=== PATIENT | female | born 1950 | race Two or more races ===

== ENCOUNTER 2018-04-22 15:30 | Inpatient (IN) | payer MEDICAID ==
[~2018-04-22] VITALS: Ht 165.1 cm; Wt 65.3 kg
[2018-04-22 15:58] VITALS: BP 140/71
[2018-04-22] MEDS ORDERED: Sodium Chloride 500ML 500 ML IV ONE (16:00)
[2018-04-22] MEDS ORDERED: Gastrograffin 30ml ORAL PRN (16:00)
[2018-04-22] MEDS ORDERED: Isovue-300 100ml vial INJ PRN (16:00)
[2018-04-22] MEDS ORDERED: Morphine Sulfate 4mg/ml Inj IVP ONE (16:00)
--- NOTE | 2018-04-22 16:02 | Emergency Room Report ---
History of Present Illness General Chief Complaint: Abdominal Pain Source: Patient Present Illness HPI Patient presents with 5 days of abdominal pain vomiting and diarrhea. Initially she vomited up coffee-ground material but the vomiting is gotten better. She was evaluated on Thursday at [facility] and had x-rays and labs done but was told that nothing was wrong. The pain is left lower quadrant intermittent and right now is a 5/10 and cramping. It doesn't radiate. She has been able to keep down liquids but still feels weak and dehydrated as anything she eats comes out and the diarrhea is very watery and copious. She feels weak when standing and somewhat dizzy. No recent travel, unusual foods or sick contacts. No chest pain, dyspnea, headache, joint pain, rashes, dysuria, anxiety. The patient is diabetic and hypertensive. Allergies: Coded Allergies: No Known Allergies (Unverified , 04/22/18) Patient History Past Medical History: see triage record Social History: Denies: smoking, alcohol use, drug use Social History Narrative with her daughter Last Menstrual Period: NA Reviewed Nursing Documentation: PMH: Agreed; PSxH: Agreed Nursing Documentation-PMH Past Medical History: No History, Except For Hx Hypertension: Yes Hx Asthma: Yes Hx Diabetes: Yes Review of Systems All Other Systems: negative except mentioned in HPI Physical Exam Vital Signs Date Time Temp Pulse Resp B/P (MAP) Pulse Ox O2 Delivery O2 Flow Rate FiO2 04/22/18 15:41 98.5 81 18 140/71 95 Room Air 98.4 Sp02 EP Interpretation: reviewed, normal General Appearance: well appearing, no apparent distress, GCS 15, other - weak Head: normocephalic Eyes: bilateral eye normal inspection, bilateral eye PERRL ENT: moist mucus membranes Neck: supple Respiratory: lungs clear, normal breath sounds Cardiovascular #1: regular rate, rhythm Cardiovascular #2: 2+ radial (R) Gastrointestinal: normal inspection, normal bowel sounds, no mass, non- distended, no rebound, guarding - LLQ, tenderness Musculoskeletal: back normal, gait/station normal, normal range of motion Neurologic: alert, oriented x3, grossly normal Psychiatric: mood/affect normal Skin: normal inspection, warm/dry Medical Decision Making Diagnostic Impression: Primary Impression: Colitis Additional Impressions: Diabetes Qualified Codes: E11.9 - Type 2 diabetes mellitus without complications Dehydration Abdominal pain Qualified Codes: R10.32 - Left lower quadrant pain ER Course Patient presents with abdominal pain vomiting and diarrhea. Differential includes gastroenteritis, colitis, diverticulitis, gastritis amongst others. By the history, she is dehydrated clinically. The history suggests that she was vomiting blood initially. There's been no history of melena. She has comorbidities. Evaluation will be with EKG, chest x-ray, CT of the abdomen with contrast and labs. The patient will receive IV hydration and Zofran and morphine and Pepcid. EKG no injury. CXR no infiltrates. Labs with normal WBC, elevated glucose, Patient states pain improved but still with diarrhea. CT with colitis. Consider send stool for culture and C difficile. Needs continued IV hydration and repeat evaluations. Sugar needs to be followed. Admit med Dr. Presley. Laboratory Tests Test 04/22/18 16:10 White Blood Count 6.0 K/UL (4.8-10.8) Red Blood Count 4.02 M/UL (4.20-5.40) L Hemoglobin 11.3 G/DL (12.0-16.0) L Hematocrit 34.3 % (37.0-47.0) L Mean Corpuscular Volume 85 FL (80-99) Mean Corpuscular Hemoglobin 28.1 PG (27.0-31.0) Mean Corpuscular Hemoglobin Concent 32.9 G/DL (32.0-36.0) Red Cell Distribution Width 13.2 % (11.6-14.8) Platelet Count 319 K/UL (150-450) Mean Platelet Volume 5.0 FL (6.5-10.1) L Neutrophils (%) (Auto) 47.8 % (45.0-75.0) Lymphocytes (%) (Auto) 38.5 % (20.0-45.0) Monocytes (%) (Auto) 10.2 % (1.0-10.0) H Eosinophils (%) (Auto) 1.8 % (0.0-3.0) Basophils (%) (Auto) 1.7 % (0.0-2.0) Prothrombin Time 10.0 SEC (9.30-11.50) Prothrombin Time INR 0.9 (0.9-1.1) PTT 25 SEC (23-33) Urine Color Pale yellow Urine Appearance Clear Urine pH 6 (4.5-8.0) Urine Specific [place] 1.010 (1.005-1.035) Urine Protein Negative (NEGATIVE) Urine Glucose (UA) Negative (NEGATIVE) Urine Ketones Negative (NEGATIVE) Urine Occult Blood 1+ (NEGATIVE) H Urine Nitrite Negative (NEGATIVE) Urine Bilirubin Negative (NEGATIVE) Urine Urobilinogen Normal MG/DL (0.0-1.0) Urine Leukocyte Esterase 2+ (NEGATIVE) H Urine RBC 2-4 /HPF (0 - 2) H Urine WBC 2-4 /HPF (0 - 2) Urine Squamous Epithelial Cells Few /LPF (NONE/OCC) Urine Bacteria Occasional /HPF (NONE) Sodium Level 139 MMOL/L (136-145) Potassium Level 3.7 MMOL/L (3.5-5.1) Chloride Level 108 MMOL/L (98-107) H Carbon Dioxide Level 24 MMOL/L (21-32) Anion Gap 7 mmol/L (5-15) Blood Urea Nitrogen 9 mg/dL (7-18) Creatinine 0.6 MG/DL (0.55-1.30) Estimate Glomerular Filtration Rate > 60 mL/min (>60) Glucose Level 121 MG/DL (74-106) H Calcium Level 10.4 MG/DL (8.5-10.1) H Total Bilirubin 0.4 MG/DL (0.2-1.0) Aspartate Amino Transferase (AST) 18 U/L (15-37) Alanine Aminotransferase (ALT) 22 U/L (12-78) Alkaline Phosphatase 122 U/L (46-116) H Troponin I 0.000 ng/mL (0.000-0.056) Total Protein 7.0 G/DL (6.4-8.2) Albumin 3.4 G/DL (3.4-5.0) Globulin 3.6 g/dL Albumin/Globulin Ratio 0.9 (1.0-2.7) L Lipase 118 U/L (73-393) EKG Diagnostic Results Rate: normal Rhythm: NSR ST Segments: no acute changes Rhythm Strip Diag. Results EP Interpretation: yes Rhythm: NSR, no PVC's, no ectopy Chest X-Ray Diagnostic Results Chest X-Ray Diagnostic Results : Chest X-Ray Ordered: Yes # of Views/Limited/Complete: 1 View Indication: Other Interpretation: no consolidation, no effusion, no pneumothorax Impression: No acute disease Electronically Signed by: Spenser Howard MD CT/MRI/US Diagnostic Results CT/MRI/US Diagnostic Results : Imaging Test Ordered: abd pelvis Impression colitis Last Vital Signs Date Time Temp Pulse Resp B/P (MAP) Pulse Ox O2 Delivery O2 Flow Rate FiO2 04/23/18 00:00 99.0 68 20 124/48 100 Room Air 99.0 Status: improved Disposition: ADMITTED INPATIENT Condition: Serious Spenser Howard M.D. Apr 22, 2018 16:02
[2018-04-22 16:20] LABS: BASOPHILS % (AUTO) 1.7 % (0.0-2.0); EOSINOPHILS % (AUTO) 1.8 % (0.0-3.0); HEMATOCRIT 34.3 % (37.0-47.0); HEMOGLOBIN 11.3 G/DL (12.0-16.0); LYMPHOCYTES % (AUTO) 38.5 % (20.0-45.0); MEAN CORPUSCULAR VOLUME 85 FL (80-99); MONOCYTES % (AUTO) 10.2 % (1.0-10.0); NEUTROPHILS % (AUTO) 47.8 % (45.0-75.0); PLATELET COUNT 319 K/UL (150-450); RED BLOOD COUNT 4.02 M/UL (4.20-5.40); RED CELL DISTRIBUTION WIDTH 13.2 % (11.6-14.8)
[2018-04-22 16:25] LABS: APPEARANCE,URINE CLEAR; BILIRUBIN, URINE NEGATIVE (NEGATIVE); COLOR,URINE PALE YELLOW; GLUCOSE, URINE (UA) NEGATIVE (NEGATIVE); KETONES,URINE NEGATIVE (NEGATIVE); LEUKOCYTE ESTERASE ,URINE 2+ (NEGATIVE); NITRITE,URINE NEGATIVE (NEGATIVE); PH,URINE 6 (4.5-8.0); PROTEIN,URINE NEGATIVE (NEGATIVE); UROBILINOGEN,URINE NORMAL MG/DL (0.0-1.0)
[2018-04-22 16:40] LABS: INR 0.9 (0.9-1.1)
[2018-04-22 16:41] LABS: ANION GAP 7 mmol/L (5-15); BLOOD UREA NITROGEN 9 mg/dL (7-18); CALCIUM 10.4 MG/DL (8.5-10.1); CARBON DIOXIDE 24 MMOL/L (21-32); CHLORIDE 108 MMOL/L (98-107); CREATININE 0.6 MG/DL (0.55-1.30); POTASSIUM 3.7 MMOL/L (3.5-5.1); SODIUM 139 MMOL/L (136-145)
[2018-04-22 16:45] LABS: ALANINE AMINOTRANSFERASE 22 U/L (12-78); ALBUMIN 3.4 G/DL (3.4-5.0); ALBUMIN/GLOBULIN RATIO 0.9 (1.0-2.7); ALKALINE PHOSPHATASE 122 U/L (46-116); ASPARTATE AMINO TRANSFERASE 18 U/L (15-37); BILIRUBIN,TOTAL 0.4 MG/DL (0.2-1.0)
--- NOTE | 2018-04-22 17:24 | Diagnostic Imaging Report ---
. Indication: Pain Technique: XRAY Chest 1v Comparison: None Findings: Heart is borderline enlarged. Nonspecific interstitial prominence. No focal airspace consolidation. No pleural effusion or pneumothorax. No acute osseous abnormality. Impression: Borderline cardiomegaly with nonspecific interstitial prominence, possibly chronic. Correlate clinically to assess for a degree of mild vascular congestion/overload. No focal airspace consolidation, pleural effusion or pneumothorax.
[2018-04-22 17:51] VITALS: BP 153/63
[2018-04-22] MEDS ORDERED: METFORMIN HCL1000 M1 ORAL (18:08)
[2018-04-22] MEDS ORDERED: LOSARTAN POTASS25 MG ORAL (18:11)
[2018-04-22 19:30] VITALS: BP 148/65
[2018-04-22] MEDS ORDERED: PROAIR HFA8.5 GM INH (20:27)
[2018-04-22] MEDS ORDERED: GLIPIZIDE XL10 MG ORAL (20:27)
[2018-04-22] MEDS ORDERED: ASPIRIN81 MG ORAL (20:27)
--- NOTE | 2018-04-22 20:30 | Infectious Diseases Prog Note ---
Assessment/Plan Problems: (1) Colitis Assessment & Plan: will start ceftriaxon and metronidazol, send stool culture and C diff (2) Abdominal pain Subjective Allergies: Coded Allergies: No Known Allergies (Unverified , 04/22/18) Objective Vital Signs Last 24 Hour Vital Signs Date Time Temp Pulse Resp B/P (MAP) Pulse Ox O2 Delivery O2 Flow Rate FiO2 04/22/18 19:55 98.8 79 16 148/65 99 Room Air 98.8 04/22/18 19:30 98.8 79 16 148/65 99 Room Air 98.8 04/22/18 17:51 98.8 78 18 153/63 100 Room Air 98.8 04/22/18 16:13 98.4 04/22/18 15:58 98.4 78 18 140/71 95 Room Air 98.4 04/22/18 15:41 98.5 81 18 140/71 95 Room Air 98.4 Height (Feet): 5 Weight (Pounds): 144 Laboratory Tests Test 04/22/18 16:10 White Blood Count 6.0 K/UL (4.8-10.8) Red Blood Count 4.02 M/UL (4.20-5.40) L Hemoglobin 11.3 G/DL (12.0-16.0) L Hematocrit 34.3 % (37.0-47.0) L Mean Corpuscular Volume 85 FL (80-99) Mean Corpuscular Hemoglobin 28.1 PG (27.0-31.0) Mean Corpuscular Hemoglobin Concent 32.9 G/DL (32.0-36.0) Red Cell Distribution Width 13.2 % (11.6-14.8) Platelet Count 319 K/UL (150-450) Mean Platelet Volume 5.0 FL (6.5-10.1) L Neutrophils (%) (Auto) 47.8 % (45.0-75.0) Lymphocytes (%) (Auto) 38.5 % (20.0-45.0) Monocytes (%) (Auto) 10.2 % (1.0-10.0) H Eosinophils (%) (Auto) 1.8 % (0.0-3.0) Basophils (%) (Auto) 1.7 % (0.0-2.0) Prothrombin Time 10.0 SEC (9.30-11.50) Prothromb Time International Ratio 0.9 (0.9-1.1) Activated Partial Thromboplast Time 25 SEC (23-33) Urine Color Pale yellow Urine Appearance Clear Urine pH 6 (4.5-8.0) Urine Specific [place] 1.010 (1.005-1.035) Urine Protein Negative (NEGATIVE) Urine Glucose (UA) Negative (NEGATIVE) Urine Ketones Negative (NEGATIVE) Urine Occult Blood 1+ (NEGATIVE) H Urine Nitrite Negative (NEGATIVE) Urine Bilirubin Negative (NEGATIVE) Urine Urobilinogen Normal MG/DL (0.0-1.0) Urine Leukocyte Esterase 2+ (NEGATIVE) H Urine RBC 2-4 /HPF (0 - 2) H Urine WBC 2-4 /HPF (0 - 2) Urine Squamous Epithelial Cells Few /LPF (NONE/OCC) Urine Bacteria Occasional /HPF (NONE) Sodium Level 139 MMOL/L (136-145) Potassium Level 3.7 MMOL/L (3.5-5.1) Chloride Level 108 MMOL/L (98-107) H Carbon Dioxide Level 24 MMOL/L (21-32) Anion Gap 7 mmol/L (5-15) Blood Urea Nitrogen 9 mg/dL (7-18) Creatinine 0.6 MG/DL (0.55-1.30) Estimat Glomerular Filtration Rate > 60 mL/min (>60) Glucose Level 121 MG/DL (74-106) H Calcium Level 10.4 MG/DL (8.5-10.1) H Total Bilirubin 0.4 MG/DL (0.2-1.0) Aspartate Amino Transf (AST/SGOT) 18 U/L (15-37) Alanine Aminotransferase (ALT/SGPT) 22 U/L (12-78) Alkaline Phosphatase 122 U/L (46-116) H Troponin I 0.000 ng/mL (0.000-0.056) Total Protein 7.0 G/DL (6.4-8.2) Albumin 3.4 G/DL (3.4-5.0) Globulin 3.6 g/dL Albumin/Globulin Ratio 0.9 (1.0-2.7) L Lipase 118 U/L (73-393) Current Medications Medications (Trade) Dose Ordered Sig/Mat Route PRN Reason Start Time Stop Time Status Last Admin Dose Admin Diatrizoate Meglum/ Diatrizoate Sod (Gastrografin) 30 ml NOW PRN ORAL Radiology Procedure 04/22/18 16:00 Iopamidol (Isovue-300 100ml) 100 ml NOW PRN INJ Radiology Procedure 04/22/18 16:00 Sodium Chloride 1,000 ml @ 300 mls/hr Q3H20M IV 04/22/18 16:00 05/22/18 15:59 04/22/18 16:13 Shameka Wang M.D. Apr 22, 2018 20:30
[2018-04-22] MEDS ORDERED: Morphine Sulfate 2mg/ml Inj IVP PRN (20:45)
[2018-04-22] MEDS: NovoLOG Insulin Flexpen SUBQ SCH (22:00)
[2018-04-22] MEDS ORDERED: Albuterol 90mcg Inhaler 8gm INH PRN (22:00)
[2018-04-22] MEDS: D5NS 1,000 ML IV SCH (22:06)
[2018-04-22] MEDS: cefTRIAXone 2 GM in D5W 110 ML IVPB SCH (22:06)
[2018-04-22] MEDS: Heparin 5000 units/ml inj SUBQ SCH (22:07)
[2018-04-23] VITALS: BP 124/48
[2018-04-23 04:00] VITALS: BP 121/56
[2018-04-23] MEDS: D5NS 1,000 ML IV SCH ×2 (05:39→19:04)
[2018-04-23] MEDS: NovoLOG Insulin Flexpen SUBQ SCH ×4 (05:43→20:25)
[2018-04-23 07:22] LABS: ANION GAP 10 mmol/L (5-15); BLOOD UREA NITROGEN 5 mg/dL (7-18); CALCIUM 8.8 MG/DL (8.5-10.1); CARBON DIOXIDE 22 MMOL/L (21-32); CHLORIDE 111 MMOL/L (98-107); CREATININE 0.5 MG/DL (0.55-1.30); POTASSIUM 3.4 MMOL/L (3.5-5.1); SODIUM 143 MMOL/L (136-145)
[2018-04-23 07:27] LABS: BASOPHILS % (AUTO) 1.7 % (0.0-2.0); EOSINOPHILS % (AUTO) 2.6 % (0.0-3.0); HEMATOCRIT 33.7 % (37.0-47.0); HEMOGLOBIN 10.9 G/DL (12.0-16.0); LYMPHOCYTES % (AUTO) 30.5 % (20.0-45.0); MEAN CORPUSCULAR VOLUME 87 FL (80-99); MONOCYTES % (AUTO) 9.7 % (1.0-10.0); NEUTROPHILS % (AUTO) 55.6 % (45.0-75.0); PLATELET COUNT 322 K/UL (150-450); RED BLOOD COUNT 3.87 M/UL (4.20-5.40); RED CELL DISTRIBUTION WIDTH 13.1 % (11.6-14.8); WHITE BLOOD COUNT 4.9 K/UL (4.8-10.8)
[2018-04-23 08:00] VITALS: BP 135/55
--- NOTE | 2018-04-23 09:07 | General Progress Note ---
Assessment/Plan Assessment/Plan seen and examined. Dictation in progress Subjective Allergies: Coded Allergies: No Known Allergies (Unverified , 04/22/18) Objective Last 24 Hour Vital Signs Date Time Temp Pulse Resp B/P (MAP) Pulse Ox O2 Delivery O2 Flow Rate FiO2 04/23/18 04:00 98.6 64 18 121/56 94 Room Air 98.6 04/23/18 00:00 99.0 68 20 124/48 100 Room Air 99.0 04/22/18 19:55 98.8 79 16 148/65 99 Room Air 98.8 04/22/18 19:30 98.8 79 16 148/65 99 Room Air 98.8 04/22/18 17:51 98.8 78 18 153/63 100 Room Air 98.8 04/22/18 16:13 98.4 04/22/18 15:58 98.4 78 18 140/71 95 Room Air 98.4 04/22/18 15:41 98.5 81 18 140/71 95 Room Air 98.4 Intake and Output 04/22/18 04/23/18 19:00 07:00 Intake Total 700 ml Output Total 0 ml Balance 0 ml 700 ml Intake IV Total 700 ml Output Urine Total 0 ml # Voids 4 # Bowel Movements 6 Laboratory Tests 04/22/18 16:10: White Blood Count 6.0, Red Blood Count 4.02L, Hemoglobin 11.3L, Hematocrit 34.3L , Mean Corpuscular Volume 85, Mean Corpuscular Hemoglobin 28.1, Mean Corpuscular Hemoglobin Concent 32.9, Red Cell Distribution Width 13.2, Platelet Count 319, Mean Platelet Volume 5.0L, Neutrophils (%) (Auto) 47.8, Lymphocytes ( %) (Auto) 38.5, Monocytes (%) (Auto) 10.2H, Eosinophils (%) (Auto) 1.8, Basophils (%) (Auto) 1.7, Prothrombin Time 10.0, Prothromb Time International Ratio 0.9, Activated Partial Thromboplast Time 25, Urine Color Pale yellow, Urine Appearance Clear, Urine pH 6, Urine Specific [place] 1.010, Urine Protein Negative, Urine Glucose (UA) Negative, Urine Ketones Negative, Urine Occult Blood 1+H, Urine Nitrite Negative, Urine Bilirubin Negative, Urine Urobilinogen Normal, Urine Leukocyte Esterase 2+H, Urine RBC 2-4H, Urine WBC 2-4, Urine Squamous Epithelial Cells Few, Urine Bacteria Occasional, Sodium Level 139, Potassium Level 3.7, Chloride Level 108H, Carbon Dioxide Level 24, Anion Gap 7, Blood Urea Nitrogen 9, Creatinine 0.6, Estimat Glomerular Filtration Rate > 60, Glucose Level 121H, Calcium Level 10.4H, Total Bilirubin 0.4, Aspartate Amino Transf (AST/SGOT) 18, Alanine Aminotransferase (ALT/SGPT) 22, Alkaline Phosphatase 122H, Troponin I 0.000, Total Protein 7.0, Albumin 3.4, Globulin 3.6 , Albumin/Globulin Ratio 0.9L, Lipase 118 04/23/18 06:30: White Blood Count 4.9, Red Blood Count 3.87L, Hemoglobin 10.9L, Hematocrit 33.7L , Mean Corpuscular Volume 87, Mean Corpuscular Hemoglobin 28.3, Mean Corpuscular Hemoglobin Concent 32.4, Red Cell Distribution Width 13.1, Platelet Count 322, Mean Platelet Volume 5.3L, Neutrophils (%) (Auto) 55.6, Lymphocytes ( %) (Auto) 30.5, Monocytes (%) (Auto) 9.7, Eosinophils (%) (Auto) 2.6, Basophils (%) (Auto) 1.7, Sodium Level 143, Potassium Level 3.4L, Chloride Level 111H, Carbon Dioxide Level 22, Anion Gap 10, Blood Urea Nitrogen 5L, Creatinine 0.5L, Estimat Glomerular Filtration Rate > 60, Glucose Level 94, Calcium Level 8.8, Hemoglobin A1c 7.6H Height (Feet): 5 Height (Inches): 0.00 Weight (Pounds): 144 Airam Presley MD Apr 23, 2018 09:07
--- NOTE | 2018-04-23 09:07 | History & Physical ---
History and Physical History & Physicial seen and examined. Dictation completed Airam Presley MD Apr 23, 2018 09:07
--- NOTE | 2018-04-23 09:32 | Diagnostic Imaging Report ---
Indication: Abdominal pain Technique: Continuous helical transaxial imaging of the abdomen and pelvis was obtained from the lung bases to the pubic symphysis during intravenous contrast administration. Coronal 2-D reformats were also obtained. Study obtained in a Siemens sensation [address] Automatic Exposure Control was utilized. Total Dose length Product (DLP): 710.[address] Dose Index Volume (CTDIvol): 13.68 mGy Comparison: None Findings: Mild dependent posterior basal atelectasis demonstrated with mild reticular markings present. There are gallstones present in the gallbladder which is not dilated. Pancreas, liver and spleen appear unremarkable. There is a complex appearing right renal hypodensity which may be cystic. Suggest sonographic correlation for this 1.6 x 1 cm hypodensity. The kidneys otherwise unremarkable. There is no hydronephrosis. Small nodes are seen in the right lower quadrant mesentery. The appendix is not seen but there are no secondary signs of acute appendicitis. There is no free air, free fluid or evidence of bowel obstruction. Urinary bladder is unremarkable. This atrophic uterus demonstrated with multiple calcifications adjacent to the posterior wall the urinary bladder. Its possible patient has had prior hysterectomy and this may be dystrophic calcium within the surgical bed. Correlate clinically. Atrophic bilateral ovaries also noted. Vacuum phenomena within the sacroiliac joints demonstrated. There is a grade 1 spondylolisthesis L5 on S1. 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 There is foraminal stenosis at L4-5 and L5-S1. Bones are osteopenic. IMPRESSION: No acute findings identified in the abdomen or pelvis. 1.6 cm hypodensity in the right kidney probably cystic but the likely complex. Correlate with ultrasound. Atrophic uterus with calcification versus dystrophic calcium in the setting of prior hysterectomy. L5 spondylolysis. Grade 1 spondylolisthesis L5 on S1. Neural foraminal stenosis. Cholelithiasis. The CT scanner at [facility] is accredited by the [employer] and the scans are performed using dose optimization techniques as appropriate to a performed exam including Automatic Exposure control.
[2018-04-23] MEDS: Losartan 25mg tab ORAL SCH (09:36)
[2018-04-23] MEDS: Heparin 5000 units/ml inj SUBQ SCH ×2 (09:37→20:24)
[2018-04-23 12:00] VITALS: BP 136/59
--- NOTE | 2018-04-23 13:30 | History and Physical Report ---
DATE OF ADMISSION: 04/22/2018 SOURCE OF INFORMATION: The patient and EMR. HISTORY OF PRESENT ILLNESS: The patient is a 67-year-old female with a history of diabetes, who presented with history of abdominal pain, nausea, and vomiting for the last five to six days. The patient denies any hemoptysis. Denies any passing blood per rectum. The patient denies prior history of major abdominal surgery. At the time of evaluation, the patient appears comfortable. Denies any shortness of breath. No chest pain. PAST MEDICAL HISTORY: Diabetes, hypertension, and COPD. PAST SURGICAL HISTORY: Urogenital surgery 20 - 30 years ago. Otherwise unremarkable. ALLERGIES: NKDA. CURRENT HOME MEDICATIONS: Albuterol, aspirin, glipizide, losartan, and metformin. SOCIAL HISTORY: The patient has five living children. She is . Denies history of illicit drug abuse or alcohol abuse. She has prior history of tobacco abuse and reportedly has quit about four years ago. REVIEW OF SYSTEMS: All 12 elements of review of systems reviewed. Pertinent positives and negatives as above. PHYSICAL EXAMINATION: VITAL SIGNS: Blood pressure 140/70, temperature 98.2, and pulse oximetry 98% on room air. HEAD AND NECK: Atraumatic and normocephalic. CHEST: Clear to auscultation. No wheezing. No crackles. HEART: S1 and S2. Regular rate and rhythm. Negative for S4. Negative for S3. ABDOMEN: Soft. No organomegaly. MUSCULOSKELETAL: No gross focal motor deficit. NEUROLOGIC: The patient is awake, alert, and oriented x3. LABORATORY DATA: Labs dated April 22, shows WBC 6, hemoglobin of 11.3, and platelets of 319. Sodium 139, potassium 3.7, BUN 9, creatinine 0.6. AST and ALT are within normal limits. Urinalysis, 2+ leukocyte count, otherwise unremarkable. ASSESSMENT AND PLAN: 1. Acute gastroenteritis - etiology working in progress. 2. Diabetes type 2. 3. Hypertension. 4. Anemia. 5. GI and DVT prophylaxis. PLAN OF CARE: We will continue with conservative management. Keep the patient n.p.o. Discontinue the metformin and diabetic medications p.o. GI and Infectious Disease have been consulted. Airam Presley M.D. DR: LYNN JOB#: [id number] CC:
--- NOTE | 2018-04-23 14:19 | Cardiology Report ---
APPROVED REPORT EKG Measurement Heart [id number] Normal sinus rhythm Normal ECG
--- NOTE | 2018-04-23 15:12 | Infectious Diseases Prog Note ---
Assessment/Plan Problems: (1) Colitis Assessment & Plan: continue ceftriaxon and metronidazol, pending stool culture , C diff is negative (2) Abdominal pain Assessment & Plan: due to the above, continue supportive care and fluids (3) UTI (urinary tract infection) Assessment & Plan: already on ceftriaxon Subjective Constitutional: Reports: no symptoms HEENT: Reports: no symptoms Respiratory: Reports: no symptoms Breasts: Reports: no symptoms Cardiovascular: Reports: no symptoms Gastrointestinal/Abdominal: Reports: nausea, bloating Genitourinary: Reports: no symptoms Neurologic: Reports: no symptoms Psychiatric: Reports: no symptoms Skin: Reports: no symptoms Endocrine: Reports: no symptoms Hematologic: Reports: no symptoms Allergies: Coded Allergies: No Known Allergies (Unverified , 04/22/18) Objective Vital Signs Last 24 Hour Vital Signs Date Time Temp Pulse Resp B/P (MAP) Pulse Ox O2 Delivery O2 Flow Rate FiO2 04/23/18 09:36 135/55 04/23/18 09:00 Room Air 04/23/18 08:00 98.7 64 19 135/55 94 Room Air 98.7 04/23/18 04:00 98.6 64 18 121/56 94 Room Air 98.6 04/23/18 00:00 99.0 68 20 124/48 100 Room Air 99.0 04/22/18 19:55 98.8 79 16 148/65 99 Room Air 98.8 04/22/18 19:30 98.8 79 16 148/65 99 Room Air 98.8 04/22/18 17:51 98.8 78 18 153/63 100 Room Air 98.8 04/22/18 16:13 98.4 04/22/18 15:58 98.4 78 18 140/71 95 Room Air 98.4 04/22/18 15:41 98.5 81 18 140/71 95 Room Air 98.4 Height (Feet): 5 Height (Inches): 0.00 Weight (Pounds): 144 General Appearance: WD/WN, no acute distress HEENT: normocephalic, atraumatic, anicteric Respiratory/Chest: chest wall non-tender, lungs clear, normal breath sounds Cardiovascular: normal peripheral pulses, normal rate, regular rhythm Abdomen: normal bowel sounds, soft, non tender, no organomegaly, non distended Extremities: no cyanosis, no clubbing Skin: no rash, no lesions Neurologic/Psychiatric: alert, oriented x 3 Microbiology Date/Time Source Procedure Growth Status 04/23/18 04:50 Stool Clostridium difficile Toxin Assay - Final Complete Laboratory Tests Test 04/22/18 16:10 04/23/18 06:30 White Blood Count 6.0 K/UL (4.8-10.8) 4.9 K/UL (4.8-10.8) Red Blood Count 4.02 M/UL (4.20-5.40) L 3.87 M/UL (4.20-5.40) L Hemoglobin 11.3 G/DL (12.0-16.0) L 10.9 G/DL (12.0-16.0) L Hematocrit 34.3 % (37.0-47.0) L 33.7 % (37.0-47.0) L Mean Corpuscular Volume 85 FL (80-99) 87 FL (80-99) Mean Corpuscular Hemoglobin 28.1 PG (27.0-31.0) 28.3 PG (27.0-31.0) Mean Corpuscular Hemoglobin Concent 32.9 G/DL (32.0-36.0) 32.4 G/DL (32.0-36.0) Red Cell Distribution Width 13.2 % (11.6-14.8) 13.1 % (11.6-14.8) Platelet Count 319 K/UL (150-450) 322 K/UL (150-450) Mean Platelet Volume 5.0 FL (6.5-10.1) L 5.3 FL (6.5-10.1) L Neutrophils (%) (Auto) 47.8 % (45.0-75.0) 55.6 % (45.0-75.0) Lymphocytes (%) (Auto) 38.5 % (20.0-45.0) 30.5 % (20.0-45.0) Monocytes (%) (Auto) 10.2 % (1.0-10.0) H 9.7 % (1.0-10.0) Eosinophils (%) (Auto) 1.8 % (0.0-3.0) 2.6 % (0.0-3.0) Basophils (%) (Auto) 1.7 % (0.0-2.0) 1.7 % (0.0-2.0) Prothrombin Time 10.0 SEC (9.30-11.50) Prothromb Time International Ratio 0.9 (0.9-1.1) Activated Partial Thromboplast Time 25 SEC (23-33) Urine Color Pale yellow Urine Appearance Clear Urine pH 6 (4.5-8.0) Urine Specific [place] 1.010 (1.005-1.035) Urine Protein Negative (NEGATIVE) Urine Glucose (UA) Negative (NEGATIVE) Urine Ketones Negative (NEGATIVE) Urine Occult Blood 1+ (NEGATIVE) H Urine Nitrite Negative (NEGATIVE) Urine Bilirubin Negative (NEGATIVE) Urine Urobilinogen Normal MG/DL (0.0-1.0) Urine Leukocyte Esterase 2+ (NEGATIVE) H Urine RBC 2-4 /HPF (0 - 2) H Urine WBC 2-4 /HPF (0 - 2) Urine Squamous Epithelial Cells Few /LPF (NONE/OCC) Urine Bacteria Occasional /HPF (NONE) Sodium Level 139 MMOL/L (136-145) 143 MMOL/L (136-145) Potassium Level 3.7 MMOL/L (3.5-5.1) 3.4 MMOL/L (3.5-5.1) L Chloride Level 108 MMOL/L (98-107) H 111 MMOL/L (98-107) H Carbon Dioxide Level 24 MMOL/L (21-32) 22 MMOL/L (21-32) Anion Gap 7 mmol/L (5-15) 10 mmol/L (5-15) Blood Urea Nitrogen 9 mg/dL (7-18) 5 mg/dL (7-18) L Creatinine 0.6 MG/DL (0.55-1.30) 0.5 MG/DL (0.55-1.30) L Estimat Glomerular Filtration Rate > 60 mL/min (>60) > 60 mL/min (>60) Glucose Level 121 MG/DL (74-106) H 94 MG/DL (74-106) Calcium Level 10.4 MG/DL (8.5-10.1) H 8.8 MG/DL (8.5-10.1) Total Bilirubin 0.4 MG/DL (0.2-1.0) Aspartate Amino Transf (AST/SGOT) 18 U/L (15-37) Alanine Aminotransferase (ALT/SGPT) 22 U/L (12-78) Alkaline Phosphatase 122 U/L (46-116) H Troponin I 0.000 ng/mL (0.000-0.056) Total Protein 7.0 G/DL (6.4-8.2) Albumin 3.4 G/DL (3.4-5.0) Globulin 3.6 g/dL Albumin/Globulin Ratio 0.9 (1.0-2.7) L Lipase 118 U/L (73-393) Hemoglobin A1c 7.6 % (4.3-6.0) H Current Medications Medications (Trade) Dose Ordered Sig/Mat Route PRN Reason Start Time Stop Time Status Last Admin Dose Admin Acetaminophen (Tylenol) 650 mg Q4H PRN ORAL Mild Pain/Temp > 100.5 04/22/18 20:45 05/22/18 20:44 Albuterol Sulfate (Proventil MDI) 2 puff Q4H PRN INH Shortness of Breath 04/22/18 22:00 05/22/18 21:59 Ceftriaxone Sodium 2 gm/ Dextrose 110 ml @ 220 mls/hr Q24H IVPB 04/22/18 22:00 04/29/18 21:59 04/22/18 22:06 Dextrose (Dextrose 50%) 25 ml STAT PRN IV Hypoglycemia 04/22/18 20:45 05/22/18 20:44 Dextrose (Dextrose 50%) 50 ml STAT PRN IV Hypoglycemia 04/22/18 20:45 05/22/18 20:44 Dextrose/Sodium Chloride 1,000 ml @ 100 mls/hr Q10H IV 04/22/18 21:00 05/22/18 20:59 04/23/18 05:39 Heparin Sodium (Porcine) (Heparin 5000 units/ml) 5,000 units EVERY 12 HOURS SUBQ 04/22/18 21:00 05/22/18 20:59 04/23/18 09:37 Insulin Aspart (NovoLOG) BEFORE MEALS AND HS SUBQ 04/22/18 22:00 05/22/18 21:59 04/23/18 05:43 Losartan Potassium (Cozaar) 25 mg DAILY ORAL 04/23/18 09:00 05/23/18 08:59 04/23/18 09:36 Metronidazole 100 ml @ 100 mls/hr Q8HR IVPB 04/22/18 22:00 04/29/18 21:59 04/23/18 05:39 Morphine Sulfate (Morphine Sulfate) 1 mg Q4H PRN IVP Severe Pain (Pain Scale 7-10) 04/22/18 20:45 04/29/18 20:44 Ondansetron HCl (Zofran) 4 mg Q4H PRN IVP Nausea & Vomiting 04/22/18 20:45 05/22/18 20:44 Shameka Wang M.D. Apr 23, 2018 15:12
[2018-04-23 16:00] VITALS: BP 154/66
--- NOTE | 2018-04-23 17:35 | GI Initial Consult Note ---
History of Present Illness General Date patient seen: Apr 23, 2018 Time patient seen: 17:27 Reason for Hospitalization: Abdominal Pain Referring physician: DAVIS FERREIRA Reason for Consultation: DIARRHEA Present Illness HPI HISTORY OF PRESENT ILLNESS: The patient is a 67-year-old female with a history of diabetes, who presented with history of abdominal pain, nausea, and vomiting for the last five to six days. The patient denies any hemoptysis. Denies any passing blood per rectum. The patient denies prior history of major abdominal surgery. At the time of evaluation, the patient appears comfortable. Denies any shortness of breath. No chest pain. GI consulted for abdominal pain and diarrhea. Pt seen with family at bedside, awake A&Ox4 NAD with no active s/sx of N/V. Had complaint of diarrhea since Thursday earlier this week. Started the day prior, stated she had extreme generalized abdominal pain followed by nausea and vomiting. Denied any hematemesis or coffee grounds. Patient states this is an acute episode. Cdiff negative. Presents today with anemia and elevated alkaline phosphatase. Patient has no history of endoscopy / colonoscopy. Home Meds Reported Medications Albuterol Sulfate* (PROAIR HFA*) 8.5 Gm Hfa.aer.ad, 2 PUFFS INH Q6H PRN for Shortness of Breath, #8.5 GM 0 Refills 04/22/18 Aspirin* (ASPIRIN*) 81 Mg Tab.chew, 81 MG ORAL DAILY, TAB 04/22/18 Glipizide (Glipizide) 10 Mg Tablet, 10 MG ORAL DAILY, #30 TAB 0 Refills 04/22/18 Losartan Potassium* (LOSARTAN POTASSIUM*) 25 Mg Tablet, 25 MG ORAL DAILY, TAB 04/22/18 Metformin Hcl* (METFORMIN HCL*) 1,000 Mg Tablet, 1000 MG ORAL DAILY, TAB 04/22/18 Med list reviewed/reconciled: Yes Allergies: Coded Allergies: No Known Allergies (Unverified , 04/22/18) Patient History Limited by: language barrier History Provided By: Patient, Family Member, Medical Record [facility] Narrative PAST MEDICAL HISTORY: Diabetes, hypertension, and COPD. PAST SURGICAL HISTORY: Urogenital surgery 20 - 30 years ago. Otherwise unremarkable. Social History: Denies: smoking, alcohol use, drug use, other Review of Systems All Other Systems: negative except mentioned in HPI Physical Exam Vital Signs Date Time Temp Pulse Resp B/P (MAP) Pulse Ox O2 Delivery O2 Flow Rate FiO2 04/22/18 15:41 98.5 81 18 140/71 95 Room Air 98.4 Sp02 EP Interpretation: reviewed, normal Labs Laboratory Tests Test 04/23/18 06:30 White Blood Count 4.9 K/UL (4.8-10.8) Red Blood Count 3.87 M/UL (4.20-5.40) L Hemoglobin 10.9 G/DL (12.0-16.0) L Hematocrit 33.7 % (37.0-47.0) L Mean Corpuscular Volume 87 FL (80-99) Mean Corpuscular Hemoglobin 28.3 PG (27.0-31.0) Mean Corpuscular Hemoglobin Concent 32.4 G/DL (32.0-36.0) Red Cell Distribution Width 13.1 % (11.6-14.8) Platelet Count 322 K/UL (150-450) Mean Platelet Volume 5.3 FL (6.5-10.1) L Neutrophils (%) (Auto) 55.6 % (45.0-75.0) Lymphocytes (%) (Auto) 30.5 % (20.0-45.0) Monocytes (%) (Auto) 9.7 % (1.0-10.0) Eosinophils (%) (Auto) 2.6 % (0.0-3.0) Basophils (%) (Auto) 1.7 % (0.0-2.0) Sodium Level 143 MMOL/L (136-145) Potassium Level 3.4 MMOL/L (3.5-5.1) L Chloride Level 111 MMOL/L (98-107) H Carbon Dioxide Level 22 MMOL/L (21-32) Anion Gap 10 mmol/L (5-15) Blood Urea Nitrogen 5 mg/dL (7-18) L Creatinine 0.5 MG/DL (0.55-1.30) L Estimat Glomerular Filtration Rate > 60 mL/min (>60) Glucose Level 94 MG/DL (74-106) Hemoglobin A1c 7.6 % (4.3-6.0) H Calcium Level 8.8 MG/DL (8.5-10.1) General Appearance: well appearing, no apparent distress, alert, obese Head: normocephalic EENT: PERRL/EOMI, normal ENT inspection Neck: supple Respiratory: normal breath sounds, no respiratory distress Cardiovascular: normal rate Gastrointestinal: normal inspection, non tender, soft, normal bowel sounds, non -distended Rectal: deferred Genitourinary: no CVA tenderness Musculoskeletal: normal inspection, back normal Neurologic: normal inspection, alert, oriented x3, responsive Psychiatric: normal inspection, judgement/insight normal, memory normal Skin: normal inspection, normal color, no rash, warm/dry, palpation normal, well hydrated Lymphatic: normal inspection, no adenopathy Current Medications Current Medications Medications (Trade) Dose Ordered Sig/Mat Route PRN Reason Start Time Stop Time Status Last Admin Dose Admin Acetaminophen (Tylenol) 650 mg Q4H PRN ORAL Mild Pain/Temp > 100.5 04/22/18 20:45 05/22/18 20:44 Albuterol Sulfate (Proventil MDI) 2 puff Q4H PRN INH Shortness of Breath 04/22/18 22:00 05/22/18 21:59 Ceftriaxone Sodium 2 gm/ Dextrose 110 ml @ 220 mls/hr Q24H IVPB 04/22/18 22:00 04/29/18 21:59 04/22/18 22:06 Dextrose (Dextrose 50%) 25 ml STAT PRN IV Hypoglycemia 04/22/18 20:45 05/22/18 20:44 Dextrose (Dextrose 50%) 50 ml STAT PRN IV Hypoglycemia 04/22/18 20:45 05/22/18 20:44 Dextrose/Sodium Chloride 1,000 ml @ 100 mls/hr Q10H IV 04/22/18 21:00 05/22/18 20:59 04/23/18 05:39 Heparin Sodium (Porcine) (Heparin 5000 units/ml) 5,000 units EVERY 12 HOURS SUBQ 04/22/18 21:00 05/22/18 20:59 04/23/18 09:37 Insulin Aspart (NovoLOG) BEFORE MEALS AND HS SUBQ 04/22/18 22:00 05/22/18 21:59 04/23/18 05:43 Losartan Potassium (Cozaar) 25 mg DAILY ORAL 04/23/18 09:00 05/23/18 08:59 04/23/18 09:36 Metronidazole 100 ml @ 100 mls/hr Q8HR IVPB 04/22/18 22:00 04/29/18 21:59 04/23/18 15:14 Morphine Sulfate (Morphine Sulfate) 1 mg Q4H PRN IVP Severe Pain (Pain Scale 7-10) 04/22/18 20:45 04/29/18 20:44 Ondansetron HCl (Zofran) 4 mg Q4H PRN IVP Nausea & Vomiting 04/22/18 20:45 05/22/18 20:44 GI: Plan Problems: (1) Gastroenteritis (2) Colitis (3) Abdominal pain (4) Diabetes (5) Dehydration Plan symptomatic treatment at this time CLD, advance to ADA diet as tolerated zofran prn IV/PO hydration electrolyte correction anemia work up OB stool r/o GI bleed monitor H&H, prn transfusions bowel regime ppi fu labs needs outpatient GI procedures Discussed with Dr. Harrison. Thank you for this patient referral, we will follow. The patient was seen and examined at bedside and all new and available data was reviewed in the patients chart. I agree with the above findings, impression and plan. (Patient seen earlier today. Signature stamp does not reflect patient encounter time.). - MD Joanne Jones,[facility] Apr 23, 2018 17:35
--- NOTE | 2018-04-23 19:45 | Consultation ---
DATE OF CONSULTATION: 04/23/2018 INFECTIOUS DISEASE CONSULTATION CONSULTING PHYSICIAN: Shameka Wang M.D. REQUESTING PHYSICIAN: Airam Presley M.D. REASON FOR CONSULTATION: Colitis. Recommendation for antibiotics treatment. HISTORY OF PRESENT ILLNESS: The patient is a 67-year-old female with history of a diabetes, hypertension, and COPD presented to the hospital with abdominal pain, nausea, and vomiting for a week. No blood in the vomits or in the stool. Denied any fever or chills. No recent travel or sick contact. The patient was evaluated in the emergency room and she was started on antibiotics empirically and an Infectious Disease consult was requested for further evaluation and management. REVIEW OF SYSTEMS: Fourteen point of system reviewed were all negative. PAST MEDICAL HISTORY: Significant for diabetes, hypertension, and COPD. PAST SURGICAL HISTORY: Unremarkable. SOCIAL HISTORY: The patient lives at home with her kids. She is . Denied using any drugs, tobacco, or alcohol. ALLERGIES: No known drug allergy. MEDICATIONS: The patient received morphine, dextrose, Zofran, heparin and albuterol inhaler in the emergency room. For the rest of her medications, please refer to [facility]. LABORATORY AND DIAGNOSTIC DATA: Labs showed white count of 6000, hemoglobin of 11.3 and platelet count of 319. BUN of 9 and creatinine of 0.6. Urinalysis shows +2 leukocyte esterase, wbc's 2-4 and occasional bacteria. Imaging, chest x-ray showed borderline cardiomegaly with nonspecific interstitial prominence, possibly chronic. PHYSICAL EXAMINATION: VITAL SIGNS: Temperature 98.4 degrees, pulse 78, respirations 18, blood pressure 140/71 and saturation 95% on room air. GENERAL: A middle-aged female, lying in bed, obese, Gu[place]ese speaker, awake, alert, not in distress. HEENT: Normocephalic and atraumatic. NECK: Supple. CARDIOVASCULAR: Regular rate and rhythm. ABDOMEN: Soft, tender mainly on the left side. No rebound. No ascites. EXTREMITY: No edema or cyanosis. ASSESSMENT AND RECOMMENDATION: 1. Colitis, rule out infectious etiology. We will send stool for C. difficile and culture. We will start the patient on ceftriaxone and Flagyl. 2. UTI. The patient already on antibiotics. 3. Abdominal pain, nausea and vomiting suspect due to colitis. Continue supportive care as per primary and fluid hydration. Thank you for the consult. Shameka Wang M.D. DR: JUAN JOB#: [id number] CC:
[2018-04-23 20:00] VITALS: BP 150/59
[2018-04-23] MEDS: cefTRIAXone 2 GM in D5W 110 ML IVPB SCH (22:23)
[2018-04-24] VITALS: BP 124/96
[2018-04-24] MEDS: D5NS 1,000 ML IV SCH ×2 (03:39→13:57)
[2018-04-24 04:00] VITALS: BP 127/53
[2018-04-24] MEDS: NovoLOG Insulin Flexpen SUBQ SCH ×4 (06:16→21:41)
[2018-04-24 07:09] LABS: ANION GAP 10 mmol/L (5-15); BLOOD UREA NITROGEN 1 mg/dL (7-18); CALCIUM 9.6 MG/DL (8.5-10.1); CARBON DIOXIDE 23 MMOL/L (21-32); CHLORIDE 109 MMOL/L (98-107); CREATININE 0.5 MG/DL (0.55-1.30); POTASSIUM 3.2 MMOL/L (3.5-5.1); SODIUM 142 MMOL/L (136-145)
[2018-04-24 07:30] LABS: BASOPHILS % (AUTO) 1.6 % (0.0-2.0); EOSINOPHILS % (AUTO) 3.9 % (0.0-3.0); HEMATOCRIT 34.9 % (37.0-47.0); HEMOGLOBIN 11.4 G/DL (12.0-16.0); LYMPHOCYTES % (AUTO) 50.2 % (20.0-45.0); MEAN CORPUSCULAR VOLUME 86 FL (80-99); MONOCYTES % (AUTO) 10.6 % (1.0-10.0); NEUTROPHILS % (AUTO) 33.7 % (45.0-75.0); PLATELET COUNT 339 K/UL (150-450); RED BLOOD COUNT 4.06 M/UL (4.20-5.40); RED CELL DISTRIBUTION WIDTH 12.8 % (11.6-14.8); WHITE BLOOD COUNT 4.4 K/UL (4.8-10.8)
[2018-04-24 08:00] VITALS: BP 155/62
[2018-04-24] MEDS: Losartan 25mg tab ORAL SCH (09:06)
[2018-04-24] MEDS: Heparin 5000 units/ml inj SUBQ SCH ×2 (09:09→21:44)
--- NOTE | 2018-04-24 11:25 | General Progress Note ---
Assessment/Plan Assessment/Plan S: I am ok O: comfortable, tolerating po . BM + PHYSICAL EXAMINATION: HEAD AND NECK: Atraumatic and normocephalic. CHEST: Clear to auscultation. No wheezing. No crackles. HEART: S1 and S2. Regular rate and rhythm. Negative for S4. Negative for S3. ABDOMEN: Soft. No organomegaly. MUSCULOSKELETAL: No gross focal motor deficit. NEUROLOGIC: The patient is awake, alert, and oriented x3. Meds: reviewed and reconciled in the chart ASSESSMENT AND PLAN: 1. Acute gastroenteritis - etiology working in progress. 2. Diabetes type 2. 3. Hypertension. 4. Anemia. 5. GI and DVT prophylaxis. 6. Hypokalemia Plan: if tolerating PO, may be discharged tomorrow K supplement Subjective Allergies: Coded Allergies: No Known Allergies (Unverified , 04/22/18) Objective Last 24 Hour Vital Signs Date Time Temp Pulse Resp B/P (MAP) Pulse Ox O2 Delivery O2 Flow Rate FiO2 04/24/18 09:06 155/62 04/24/18 09:00 Room Air 04/24/18 08:13 61 18 Room Air 21 04/24/18 08:00 98.4 57 19 155/62 (93) 98 98.4 04/24/18 04:00 98.3 57 19 127/53 (77) 97 98.3 04/24/18 00:00 98.4 56 18 124/96 (105) 97 98.4 04/23/18 23:49 58 20 Room Air 21 04/23/18 21:00 Room Air 04/23/18 20:00 99.0 58 18 150/59 (89) 97 99.0 04/23/18 16:00 98.1 61 19 154/66 (95) 98 98.1 04/23/18 12:00 98.5 61 20 136/59 (84) 98 98.5 Intake and Output 04/23/18 04/24/18 19:00 07:00 Intake Total 780 ml 2045 ml Balance 780 ml 2045 ml Intake Oral 480 ml 730 ml IV Total 300 ml 1315 ml # Voids 4 8 # Bowel Movements 1 2 Laboratory Tests 04/24/18 06:25: White Blood Count 4.4L, Red Blood Count 4.06L, Hemoglobin 11.4L, Hematocrit 34.9L, Mean Corpuscular Volume 86, Mean Corpuscular Hemoglobin 28.0, Mean Corpuscular Hemoglobin Concent 32.6, Red Cell Distribution Width 12.8, Platelet Count 339, Mean Platelet Volume 5.5L, Neutrophils (%) (Auto) 33.7L, Lymphocytes (%) (Auto) 50.2H, Monocytes (%) (Auto) 10.6H, Eosinophils (%) (Auto) 3.9H, Basophils (%) (Auto) 1.6, Sodium Level 142, Potassium Level 3.2L, Chloride Level 109H, Carbon Dioxide Level 23, Anion Gap 10, Blood Urea Nitrogen 1L, Creatinine 0.5L, Estimat Glomerular Filtration Rate > 60, Glucose Level 146H, Calcium Level 9.6 Height (Feet): 5 Height (Inches): 0.00 Weight (Pounds): 144 Airam Presley MD Apr 24, 2018 11:25
[2018-04-24 12:00] VITALS: BP 147/57
[2018-04-24] MEDS ORDERED: D5NS 1000ml IV ONE (15:19)
--- NOTE | 2018-04-24 15:51 | Infectious Diseases Prog Note ---
Assessment/Plan Problems: (1) Colitis Assessment & Plan: continue ceftriaxon and metronidazol, pending stool culture , C diff is negative (2) Abdominal pain Assessment & Plan: due to the above, continue supportive care and fluids, may need EGD for further eval (3) UTI (urinary tract infection) Assessment & Plan: already on ceftriaxon Subjective Constitutional: Reports: no symptoms HEENT: Reports: no symptoms Respiratory: Reports: no symptoms Breasts: Reports: no symptoms Cardiovascular: Reports: no symptoms Gastrointestinal/Abdominal: Reports: diarrhea, bloating Genitourinary: Reports: no symptoms Neurologic: Reports: no symptoms Psychiatric: Reports: no symptoms Skin: Reports: no symptoms Endocrine: Reports: no symptoms Hematologic: Reports: no symptoms Musculoskeletal: Reports: no symptoms Allergies: Coded Allergies: No Known Allergies (Unverified , 04/22/18) Objective Vital Signs Last 24 Hour Vital Signs Date Time Temp Pulse Resp B/P (MAP) Pulse Ox O2 Delivery O2 Flow Rate FiO2 04/24/18 12:00 98.1 52 19 147/57 (87) 98 98.1 04/24/18 09:06 155/62 04/24/18 09:00 Room Air 04/24/18 08:13 61 18 Room Air 21 04/24/18 08:00 98.4 57 19 155/62 (93) 98 98.4 04/24/18 04:00 98.3 57 19 127/53 (77) 97 98.3 04/24/18 00:00 98.4 56 18 124/96 (105) 97 98.4 04/23/18 23:49 58 20 Room Air 21 04/23/18 21:00 Room Air 04/23/18 20:00 99.0 58 18 150/59 (89) 97 99.0 04/23/18 16:00 98.1 61 19 154/66 (95) 98 98.1 Height (Feet): 5 Height (Inches): 0.00 Weight (Pounds): 144 General Appearance: WD/WN, no acute distress HEENT: normocephalic, atraumatic, anicteric, mucous membranes moist, PERRL Respiratory/Chest: chest wall non-tender, lungs clear, normal breath sounds, no respiratory distress, no accessory muscle use Cardiovascular: normal peripheral pulses, normal rate, regular rhythm, no gallop/murmur, no JVD Abdomen: normal bowel sounds, soft, non tender, no organomegaly, non distended , no mass, no scars Extremities: no cyanosis, no clubbing Skin: no rash, no lesions, no ulcers Neurologic/Psychiatric: alert, oriented x 3, responsive Lymphatic: no neck adenopathy, no groin adenopathy Microbiology Date/Time Source Procedure Growth Status 04/23/18 04:50 Stool Clostridium difficile Toxin Assay - Final Complete Laboratory Tests Test 04/24/18 06:25 White Blood Count 4.4 K/UL (4.8-10.8) L Red Blood Count 4.06 M/UL (4.20-5.40) L Hemoglobin 11.4 G/DL (12.0-16.0) L Hematocrit 34.9 % (37.0-47.0) L Mean Corpuscular Volume 86 FL (80-99) Mean Corpuscular Hemoglobin 28.0 PG (27.0-31.0) Mean Corpuscular Hemoglobin Concent 32.6 G/DL (32.0-36.0) Red Cell Distribution Width 12.8 % (11.6-14.8) Platelet Count 339 K/UL (150-450) Mean Platelet Volume 5.5 FL (6.5-10.1) L Neutrophils (%) (Auto) 33.7 % (45.0-75.0) L Lymphocytes (%) (Auto) 50.2 % (20.0-45.0) H Monocytes (%) (Auto) 10.6 % (1.0-10.0) H Eosinophils (%) (Auto) 3.9 % (0.0-3.0) H Basophils (%) (Auto) 1.6 % (0.0-2.0) Sodium Level 142 MMOL/L (136-145) Potassium Level 3.2 MMOL/L (3.5-5.1) L Chloride Level 109 MMOL/L (98-107) H Carbon Dioxide Level 23 MMOL/L (21-32) Anion Gap 10 mmol/L (5-15) Blood Urea Nitrogen 1 mg/dL (7-18) L Creatinine 0.5 MG/DL (0.55-1.30) L Estimat Glomerular Filtration Rate > 60 mL/min (>60) Glucose Level 146 MG/DL (74-106) H Calcium Level 9.6 MG/DL (8.5-10.1) Current Medications Medications (Trade) Dose Ordered Sig/Mat Route PRN Reason Start Time Stop Time Status Last Admin Dose Admin Acetaminophen (Tylenol) 650 mg Q4H PRN ORAL Mild Pain/Temp > 100.5 04/22/18 20:45 05/22/18 20:44 Albuterol Sulfate (Proventil MDI) 2 puff Q4H PRN INH Shortness of Breath 04/22/18 22:00 05/22/18 21:59 Ceftriaxone Sodium 2 gm/ Dextrose 110 ml @ 220 mls/hr Q24H IVPB 04/22/18 22:00 04/29/18 21:59 04/23/18 22:23 Dextrose (Dextrose 50%) 25 ml STAT PRN IV Hypoglycemia 04/22/18 20:45 05/22/18 20:44 Dextrose (Dextrose 50%) 50 ml STAT PRN IV Hypoglycemia 04/22/18 20:45 05/22/18 20:44 Dextrose/Sodium Chloride 1,000 ml @ 100 mls/hr Q10H IV 04/22/18 21:00 05/22/18 20:59 04/24/18 13:57 Heparin Sodium (Porcine) (Heparin 5000 units/ml) 5,000 units EVERY 12 HOURS SUBQ 04/22/18 21:00 05/22/18 20:59 04/24/18 09:09 Insulin Aspart (NovoLOG) BEFORE MEALS AND HS SUBQ 04/22/18 22:00 05/22/18 21:59 04/24/18 12:10 Losartan Potassium (Cozaar) 25 mg DAILY ORAL 04/23/18 09:00 05/23/18 08:59 04/24/18 09:06 Metronidazole 100 ml @ 100 mls/hr Q8HR IVPB 04/22/18 22:00 04/29/18 21:59 04/24/18 13:57 Morphine Sulfate (Morphine Sulfate) 1 mg Q4H PRN IVP Severe Pain (Pain Scale 7-10) 04/22/18 20:45 04/29/18 20:44 Ondansetron HCl (Zofran) 4 mg Q4H PRN IVP Nausea & Vomiting 04/22/18 20:45 05/22/18 20:44 Shameka Wang M.D. Apr 24, 2018 15:51
[2018-04-24 16:00] VITALS: BP 142/64
[2018-04-24 20:00] VITALS: BP 145/74
[2018-04-24] MEDS: cefTRIAXone 2 GM in D5W 110 ML IVPB SCH (23:25)
[2018-04-25] VITALS (7 sets, daily range): BP systolic 130–158; BP diastolic 57–67
[2018-04-25] MEDS: D5NS 1,000 ML IV SCH ×3 (02:17→19:00)
[2018-04-25] MEDS: NovoLOG Insulin Flexpen SUBQ SCH ×4 (06:05→20:52)
[2018-04-25] MEDS: Losartan 25mg tab ORAL SCH (08:48)
[2018-04-25] MEDS: Heparin 5000 units/ml inj SUBQ SCH ×2 (08:50→20:51)
[2018-04-25 09:56] LABS: BASOPHILS % (AUTO) 1.5 % (0.0-2.0); EOSINOPHILS % (AUTO) 2.5 % (0.0-3.0); HEMATOCRIT 35.9 % (37.0-47.0); HEMOGLOBIN 11.8 G/DL (12.0-16.0); MEAN CORPUSCULAR VOLUME 86 FL (80-99); MONOCYTES % (AUTO) 10.7 % (1.0-10.0); NEUTROPHILS % (AUTO) 44.2 % (45.0-75.0); PLATELET COUNT 341 K/UL (150-450); RED BLOOD COUNT 4.16 M/UL (4.20-5.40); RED CELL DISTRIBUTION WIDTH 12.9 % (11.6-14.8); WHITE BLOOD COUNT 4.3 K/UL (4.8-10.8)
[2018-04-25 10:14] LABS: ANION GAP 8 mmol/L (5-15); BLOOD UREA NITROGEN 1 mg/dL (7-18); CARBON DIOXIDE 22 MMOL/L (21-32); CHLORIDE 108 MMOL/L (98-107); CREATININE 0.5 MG/DL (0.55-1.30); POTASSIUM 3.4 MMOL/L (3.5-5.1); SODIUM 138 MMOL/L (136-145)
[2018-04-25] MEDS ORDERED: D5NS 1000ml IV ONE (11:10)
[2018-04-25] MEDS ORDERED: Tubing IV Secondary IV ONE (11:10)
--- NOTE | 2018-04-25 13:12 | General Progress Note ---
Assessment/Plan Assessment/Plan S: I am ok O: comfortable, tolerating po . BM + at the bed side PHYSICAL EXAMINATION: HEAD AND NECK: Atraumatic and normocephalic. CHEST: Clear to auscultation. No wheezing. No crackles. HEART: S1 and S2. Regular rate and rhythm. Negative for S4. Negative for S3. ABDOMEN: Soft. No organomegaly. MUSCULOSKELETAL: No gross focal motor deficit. NEUROLOGIC: The patient is awake, alert, and oriented x3. Meds: reviewed and reconciled in the chart ASSESSMENT AND PLAN: 1. Acute gastroenteritis - etiology working in progress. 2. Diabetes type 2. 3. Hypertension. 4. Anemia. 5. GI and DVT prophylaxis. 6. Hypokalemia Plan: if tolerating PO and clear by GI, may be discharged tomorrow K supplement Subjective Allergies: Coded Allergies: No Known Allergies (Unverified , 04/22/18) Objective Last 24 Hour Vital Signs Date Time Temp Pulse Resp B/P (MAP) Pulse Ox O2 Delivery O2 Flow Rate FiO2 04/25/18 09:00 Room Air 04/25/18 08:48 135/67 04/25/18 08:00 98.2 63 21 135/67 (89) 100 98.2 04/25/18 06:30 62 16 Room Air 21 04/25/18 05:01 98.6 53 18 144/57 (86) 97 98.6 04/25/18 04:00 98.6 53 18 144/57 (86) 97 98.6 04/25/18 00:00 98.0 59 20 130/60 (83) 97 98.0 04/24/18 21:00 Room Air 04/24/18 20:58 64 18 Room Air 21 04/24/18 20:00 98.0 57 16 145/74 (97) 97 98.0 04/24/18 16:00 98.2 56 17 142/64 (90) 95 98.2 Intake and Output 04/24/18 04/25/18 19:00 07:00 Intake Total 1850 ml 1158 ml Balance 1850 ml 1158 ml IV Total 1200 ml 1158 ml Other 650 ml # Voids 3 4 Laboratory Tests 04/25/18 09:30: White Blood Count 4.3L, Red Blood Count 4.16L, Hemoglobin 11.8L, Hematocrit 35.9L, Mean Corpuscular Volume 86, Mean Corpuscular Hemoglobin 28.5, Mean Corpuscular Hemoglobin Concent 33.0, Red Cell Distribution Width 12.9, Platelet Count 341, Mean Platelet Volume 5.6L, Neutrophils (%) (Auto) 44.2L, Lymphocytes (%) (Auto) 41.0, Monocytes (%) (Auto) 10.7H, Eosinophils (%) (Auto) 2.5, Basophils (%) (Auto) 1.5, Sodium Level 138, Potassium Level 3.4L, Chloride Level 108H, Carbon Dioxide Level 22, Anion Gap 8, Blood Urea Nitrogen 1L, Creatinine 0.5L, Estimat Glomerular Filtration Rate > 60, Glucose Level 224H, Calcium Level 10.0 Height (Feet): 5 Height (Inches): 0.00 Weight (Pounds): 144 Airam Presley MD Apr 25, 2018 13:12
--- NOTE | 2018-04-25 14:03 | Infectious Diseases Prog Note ---
Assessment/Plan Problems: (1) Colitis Assessment & Plan: continue ceftriaxon and metronidazol, pending stool culture , C diff is negative (2) Abdominal pain Assessment & Plan: due to the above, continue supportive care and fluids, may need EGD for further eval (3) UTI (urinary tract infection) Assessment & Plan: already on ceftriaxon Subjective Constitutional: Reports: no symptoms HEENT: Reports: no symptoms Respiratory: Reports: no symptoms Breasts: Reports: no symptoms Cardiovascular: Reports: no symptoms Gastrointestinal/Abdominal: Reports: no symptoms Genitourinary: Reports: no symptoms Neurologic: Reports: no symptoms Psychiatric: Reports: no symptoms Skin: Reports: no symptoms Endocrine: Reports: no symptoms Hematologic: Reports: no symptoms Musculoskeletal: Reports: no symptoms Allergies: Coded Allergies: No Known Allergies (Unverified , 04/22/18) Objective Vital Signs Last 24 Hour Vital Signs Date Time Temp Pulse Resp B/P (MAP) Pulse Ox O2 Delivery O2 Flow Rate FiO2 04/25/18 09:00 Room Air 04/25/18 08:48 135/67 04/25/18 08:00 98.2 63 21 135/67 (89) 100 98.2 04/25/18 06:30 62 16 Room Air 21 04/25/18 05:01 98.6 53 18 144/57 (86) 97 98.6 04/25/18 04:00 98.6 53 18 144/57 (86) 97 98.6 04/25/18 00:00 98.0 59 20 130/60 (83) 97 98.0 04/24/18 21:00 Room Air 04/24/18 20:58 64 18 Room Air 21 04/24/18 20:00 98.0 57 16 145/74 (97) 97 98.0 04/24/18 16:00 98.2 56 17 142/64 (90) 95 98.2 Height (Feet): 5 Height (Inches): 0.00 Weight (Pounds): 144 General Appearance: WD/WN, no acute distress HEENT: normocephalic, atraumatic, anicteric, mucous membranes moist, PERRL Respiratory/Chest: chest wall non-tender, lungs clear, normal breath sounds, no respiratory distress Cardiovascular: normal peripheral pulses, normal rate, regular rhythm, no gallop/murmur, no JVD Abdomen: normal bowel sounds, soft, non tender, no organomegaly, non distended , no mass, no scars Extremities: no cyanosis, no clubbing Skin: no rash, no lesions, no ulcers Neurologic/Psychiatric: alert, oriented x 3, responsive Microbiology Date/Time Source Procedure Growth Status 04/23/18 04:50 Stool Clostridium difficile Toxin Assay - Final Complete Laboratory Tests Test 04/25/18 09:30 White Blood Count 4.3 K/UL (4.8-10.8) L Red Blood Count 4.16 M/UL (4.20-5.40) L Hemoglobin 11.8 G/DL (12.0-16.0) L Hematocrit 35.9 % (37.0-47.0) L Mean Corpuscular Volume 86 FL (80-99) Mean Corpuscular Hemoglobin 28.5 PG (27.0-31.0) Mean Corpuscular Hemoglobin Concent 33.0 G/DL (32.0-36.0) Red Cell Distribution Width 12.9 % (11.6-14.8) Platelet Count 341 K/UL (150-450) Mean Platelet Volume 5.6 FL (6.5-10.1) L Neutrophils (%) (Auto) 44.2 % (45.0-75.0) L Lymphocytes (%) (Auto) 41.0 % (20.0-45.0) Monocytes (%) (Auto) 10.7 % (1.0-10.0) H Eosinophils (%) (Auto) 2.5 % (0.0-3.0) Basophils (%) (Auto) 1.5 % (0.0-2.0) Sodium Level 138 MMOL/L (136-145) Potassium Level 3.4 MMOL/L (3.5-5.1) L Chloride Level 108 MMOL/L (98-107) H Carbon Dioxide Level 22 MMOL/L (21-32) Anion Gap 8 mmol/L (5-15) Blood Urea Nitrogen 1 mg/dL (7-18) L Creatinine 0.5 MG/DL (0.55-1.30) L Estimat Glomerular Filtration Rate > 60 mL/min (>60) Glucose Level 224 MG/DL (74-106) H Calcium Level 10.0 MG/DL (8.5-10.1) Current Medications Medications (Trade) Dose Ordered Sig/Mat Route PRN Reason Start Time Stop Time Status Last Admin Dose Admin Acetaminophen (Tylenol) 650 mg Q4H PRN ORAL Mild Pain/Temp > 100.5 04/22/18 20:45 05/22/18 20:44 Albuterol Sulfate (Proventil MDI) 2 puff Q4H PRN INH Shortness of Breath 04/22/18 22:00 05/22/18 21:59 Ceftriaxone Sodium 2 gm/ Dextrose 110 ml @ 220 mls/hr Q24H IVPB 04/22/18 22:00 04/29/18 21:59 04/24/18 23:25 Dextrose (Dextrose 50%) 25 ml STAT PRN IV Hypoglycemia 04/22/18 20:45 05/22/18 20:44 Dextrose (Dextrose 50%) 50 ml STAT PRN IV Hypoglycemia 04/22/18 20:45 05/22/18 20:44 Dextrose/Sodium Chloride 1,000 ml @ 100 mls/hr Q10H IV 04/22/18 21:00 05/22/18 20:59 04/25/18 02:17 Heparin Sodium (Porcine) (Heparin 5000 units/ml) 5,000 units EVERY 12 HOURS SUBQ 04/22/18 21:00 05/22/18 20:59 04/25/18 08:50 Insulin Aspart (NovoLOG) BEFORE MEALS AND HS SUBQ 04/22/18 22:00 05/22/18 21:59 04/25/18 12:24 Losartan Potassium (Cozaar) 25 mg DAILY ORAL 04/23/18 09:00 05/23/18 08:59 04/25/18 08:48 Metronidazole 100 ml @ 100 mls/hr Q8HR IVPB 04/22/18 22:00 04/29/18 21:59 04/25/18 06:05 Morphine Sulfate (Morphine Sulfate) 1 mg Q4H PRN IVP Severe Pain (Pain Scale 7-10) 04/22/18 20:45 04/29/18 20:44 Ondansetron HCl (Zofran) 4 mg Q4H PRN IVP Nausea & Vomiting 04/22/18 20:45 05/22/18 20:44 Shameka Wang M.D. Apr 25, 2018 14:03
[2018-04-26] VITALS (11 sets, daily range): BP systolic 91–161; BP diastolic 61–68
[2018-04-26] MEDS: D5NS 1,000 ML IV SCH ×2 (02:53→15:00)
[2018-04-26] MEDS: NovoLOG Insulin Flexpen SUBQ SCH ×2 (05:52→13:04)
[2018-04-26] MEDS ORDERED: Propofol 200mg/20ml IV ONE (08:24)
[2018-04-26] MEDS ORDERED: LR 1000ml ONE (08:24)
[2018-04-26] MEDS ORDERED: Midazolam 2mg/2ml Inj ONE (08:24)
[2018-04-26] MEDS ORDERED: Lidocaine 1% MPF 10mg/ml 5ml ONE (08:24)
[2018-04-26] MEDS ORDERED: NS 500ML IVPB ONE (08:30)
[2018-04-26] MEDS ORDERED: LR 1000ml 1,000 ML IVLG SCH (08:36)
--- NOTE | 2018-04-26 08:38 | Pre-Procedure Note/Attestation ---
Pre-Procedure Note/Attestation Complete Prior to Procedure Planned Procedure: not applicable Procedure Narrative: egd Indications for Procedure Pre-Operative Diagnosis: anemia Attestation I attest that I discussed the nature of the procedure; its benefits; risks and complications; and alternatives (and the risks and benefits of such alternatives ), prior to the procedure, with the patient (or the patient's legal pest control service representative). I attest that, if there was a reasonable possibility of needing a blood transfusion, the patient (or the patient's legal pest control service representative) was given the [facility] standardized written summary, pursuant to the [place] Blood Safety Act ([place] Health and Safety Code # 1645, as amended). I attest that I re-evaluated the patient just prior to the surgery and that there has been no change in the patient's H&P, except as documented below: Jeet Harrison MD Apr 26, 2018 08:38
[2018-04-26] MEDS ORDERED: HYDROcodone/Acetamin 7.5/325 tab ORAL PRN (08:45)
[2018-04-26] MEDS ORDERED: Atropine Inj 1mg/10ml Syr IV PRN (08:45)
[2018-04-26] MEDS ORDERED: Midazolam 2mg/2ml Inj IVP PRN (08:45)
[2018-04-26] MEDS ORDERED: Norco 5mg/325mg tab ORAL PRN (08:45)
[2018-04-26] MEDS ORDERED: oxyCODONE HCL/Acetaminophen 5/325mg ORAL PRN (08:45)
[2018-04-26] MEDS ORDERED: Metoclopramide 10mg/2ml Inj IVP PRN (08:45)
[2018-04-26] MEDS ORDERED: LORazepam Inj 2mg/ml 1ml IV PRN (08:45)
[2018-04-26] MEDS ORDERED: fentaNYL 100 mcg/2 mL IV PRN (08:45)
[2018-04-26] MEDS ORDERED: Labetalol 5mg/ml 20ml vial IV PRN (08:45)
[2018-04-26] MEDS ORDERED: DiphenhydrAMINE 50mg/ml Inj IVP PRN (08:45)
[2018-04-26] MEDS ORDERED: Hydromorphone 0.5mg/0.5ml inj IVP PRN (08:45)
--- NOTE | 2018-04-26 08:48 | Anethesia Preoperative Eval ---
Anesthesia Pre-op PMH/ROS General Date of Evaluation: Apr 26, 2018 Time of Evaluation: 08:24 Anesthesiologist: George ASA Score: ASA 3 Mallampati Score Class I : Soft palate, uvula, fauces, pillars visible Class II: Soft palate, uvula, fauces visible Class III: Soft palate, base of uvula visible Class IV: Only hard plate visible Mallampati Classification: Class III Surgeon: Hunter Diagnosis: Abd Pain Surgical Procedure: EGD Anesthesia History: none Family History: no anesthesia problems Allergies: Coded Allergies: No Known Allergies (Unverified , 04/22/18) Medications: see eMAR Past Medical History Cardiovascular: Reports: HTN, other - HL Pulmonary: Reports: asthma Endocrine: Reports: DM Anesthesia Pre-op Phys. Exam Physician Exam Last Vital Signs Date Time Temp Pulse Resp B/P (MAP) Pulse Ox O2 Delivery O2 Flow Rate FiO2 04/26/18 04:00 99.3 63 20 140/64 (89) 98 99.3 04/25/18 22:50 Room Air 04/25/18 21:45 21 Constitutional: NAD Neurologic: CN 2-12 intact Cardiovascular: RRR Respiratory: CTA Gastrointestinal: S/NT/ND Airway Exam Mallampati Score: Class III MO: limited ROM: limited Teeth: missing, intact Anesthesia Pre-op A/P Labs Hematology Test 04/25/18 09:30 White Blood Count 4.3 K/UL (4.8-10.8) L Red Blood Count 4.16 M/UL (4.20-5.40) L Hemoglobin 11.8 G/DL (12.0-16.0) L Hematocrit 35.9 % (37.0-47.0) L Mean Corpuscular Volume 86 FL (80-99) Mean Corpuscular Hemoglobin 28.5 PG (27.0-31.0) Mean Corpuscular Hemoglobin Concent 33.0 G/DL (32.0-36.0) Red Cell Distribution Width 12.9 % (11.6-14.8) Platelet Count 341 K/UL (150-450) Mean Platelet Volume 5.6 FL (6.5-10.1) L Neutrophils (%) (Auto) 44.2 % (45.0-75.0) L Lymphocytes (%) (Auto) 41.0 % (20.0-45.0) Monocytes (%) (Auto) 10.7 % (1.0-10.0) H Eosinophils (%) (Auto) 2.5 % (0.0-3.0) Basophils (%) (Auto) 1.5 % (0.0-2.0) Chemistry Test 04/25/18 09:30 Sodium Level 138 MMOL/L (136-145) Potassium Level 3.4 MMOL/L (3.5-5.1) L Chloride Level 108 MMOL/L (98-107) H Carbon Dioxide Level 22 MMOL/L (21-32) Anion Gap 8 mmol/L (5-15) Blood Urea Nitrogen 1 mg/dL (7-18) L Creatinine 0.5 MG/DL (0.55-1.30) L Estimat Glomerular Filtration Rate > 60 mL/min (>60) Glucose Level 224 MG/DL (74-106) H Calcium Level 10.0 MG/DL (8.5-10.1) Risk Assessment & Plan Assessment: ASA 3 Plan: TIVA Status Change Before Surgery: Carlito Oviedo MD Apr 26, 2018 08:48
--- NOTE | 2018-04-26 08:51 | Immediate Post-Op Evaluation ---
Immediate Post-Op Evalulation Immediate Post-Op Evalulation Procedure: EGD Date of Evaluation: Apr 26, 2018 Time of Evaluation: 09:14 IV Fluids: 200 LR Blood Products: 0 Estimated Blood Loss: 1 Urinary Output: 0 Blood Pressure Systolic: 155 Blood Pressure Diastolic: 64 Pulse Rate: 60 Respiratory Rate: 16 O2 Sat by Pulse Oximetry: 100 Temperature (Fahrenheit): 97.6 Pain Score (1-10): 1 Nausea: No Vomiting: No Complications 0 Patient Status: awake, reacts, patent, none Hydration Status: adequate Carlito Vazquez MD Apr 26, 2018 08:51
--- NOTE | 2018-04-26 08:52 | 48 Hour Post Anesthesia Eval ---
Post Anesthesia Evaluation Procedure: EGD Date of Evaluation: Apr 26, 2018 Time of Evaluation: 11:23 Blood Pressure Systolic: 167 0: 78 Pulse Rate: 67 Respiratory Rate: 16 Temperature (Fahrenheit): 97.6 O2 Sat by Pulse Oximetry: 100 Airway: patent Nausea: No Vomiting: No Pain Intensity: 1 Hydration Status: adequate Cardiopulmonary Status: Stable Mental Status/LOC: patient returned to baseline Follow-up Care/Observations: 0 Post-Anesthesia Complications: 0 Follow-up care needed: N/A Carlito Vazquez MD Apr 26, 2018 08:52
--- NOTE | 2018-04-26 08:54 | Endoscopy Procedure Note ---
Endoscopy Procedure Note General Indication for Procedure: anemia Procedures Performed: EGD Operative Findings/Diagnosis: gastritis Specimen: yes Pt Tolerated Procedure Well: Yes Estimated Blood Loss: none Anesthesia Anesthesiologist: darren Anesthesia: MAC Inserted Devices Implant(s) used?: No GI Core Measures 50 yrs or older w/o bx or poly: Not Applicable 10yrs. F/U not recommended: Not Applicable Jeet Harrison MD Apr 26, 2018 08:54
[2018-04-26] MEDS: Heparin 5000 units/ml inj SUBQ SCH (09:00)
[2018-04-26] MEDS: Losartan 25mg tab ORAL SCH (10:52)
--- NOTE | 2018-04-26 11:33 | Consultation ---
History of Present Illness General Chief Complaint: Abdominal Pain Referring physician: DAVIS FERREIRA Reason for Consultation: DIARRHEA Present Illness Allergies: Coded Allergies: No Known Allergies (Unverified , 04/22/18) Medication History Scheduled Aspirin* (Aspirin*), 81 MG ORAL DAILY, (Reported) Glipizide (Glipizide), 10 MG ORAL DAILY, (Reported) Losartan Potassium* (Losartan Potassium*), 25 MG ORAL DAILY, (Reported) Metformin Hcl* (Metformin Hcl*), 1,000 MG ORAL DAILY, (Reported) Scheduled PRN Albuterol Sulfate* (Proair Hfa*), 2 PUFFS INH Q6H PRN for Shortness of Breath, ( Reported) Patient History Healthcare decision maker Resuscitation status Full Code Advanced Directive on File Physical Exam Last 24 Hour Vital Signs Date Time Temp Pulse Resp B/P (MAP) Pulse Ox O2 Delivery O2 Flow Rate FiO2 04/26/18 10:52 147/67 04/26/18 10:00 97.8 54 20 147/67 95 Room Air 97.8 04/26/18 09:45 58 20 140/64 95 Room Air 04/26/18 09:35 56 20 138/64 95 Room Air 04/26/18 09:25 51 18 133/61 95 Room Air 04/26/18 09:13 56 16 137/68 100 Room Air 04/26/18 09:08 60 16 149/62 100 Room Air 04/26/18 09:07 207.7 67 16 100 04/26/18 09:06 207.7 60 16 100 04/26/18 09:03 97.6 62 16 155/64 100 Simple Mask 5 97.6 04/26/18 09:00 Room Air 04/26/18 08:00 97.2 58 20 161/62 (95) 99 97.2 04/26/18 04:00 99.3 63 20 140/64 (89) 98 99.3 04/26/18 00:00 99.4 60 18 150/65 (93) 95 99.4 04/25/18 22:50 Room Air 04/25/18 21:45 67 18 Room Air 21 04/25/18 20:00 99.4 63 20 158/61 (93) 98 99.4 04/25/18 16:00 98.2 62 22 138/61 (86) 97 98.2 04/25/18 12:00 98.1 53 22 145/62 (89) 99 98.1 Intake and Output 04/25/18 04/26/18 19:00 07:00 Intake Total 1160 ml 820 ml Balance 1160 ml 820 ml Intake Oral 960 ml IV Total 200 ml 820 ml # Voids 2 4 # Bowel Movements 1 Height (Feet): 5 Height (Inches): 5.00 Weight (Pounds): 144 Medications Current Medications Medications (Trade) Dose Ordered Sig/Mat Route PRN Reason Start Time Stop Time Status Last Admin Dose Admin Acetaminophen (Tylenol) 650 mg Q4H PRN ORAL Mild Pain/Temp > 100.5 04/22/18 20:45 05/22/18 20:44 Acetaminophen/ Hydrocodone Bitart ([place] 5/325) 1 tab Q1H PRN ORAL Mild Pain (Pain Scale 1-3) 04/26/18 08:45 04/26/18 18:00 Acetaminophen/ Hydrocodone Bitart ([place] 7.5/325) 1 tab Q1H PRN ORAL Moderate Pain (Pain Scale 4-6) 04/26/18 08:45 04/26/18 18:00 Al Hydroxide/Mg Hydroxide (Mylanta) 15 ml Q1H PRN ORAL gi upset 04/26/18 08:45 04/26/18 18:00 Albuterol Sulfate (Proventil MDI) 2 puff Q4H PRN INH Shortness of Breath 04/22/18 22:00 05/22/18 21:59 Atropine Sulfate (Atropine) 0.5 mg Q5M PRN IV HR <40 04/26/18 08:45 04/26/18 18:00 Dextrose (Dextrose 50%) 25 ml STAT PRN IV Hypoglycemia 04/22/18 20:45 05/22/18 20:44 Dextrose (Dextrose 50%) 50 ml STAT PRN IV Hypoglycemia 04/22/18 20:45 05/22/18 20:44 Dextrose/Sodium Chloride 1,000 ml @ 100 mls/hr Q10H IV 04/22/18 21:00 05/22/18 20:59 04/26/18 02:53 Diphenhydramine HCl (Benadryl) 25 mg Q15M PRN IVP Itching 04/26/18 08:45 04/26/18 18:00 Fentanyl Citrate (Sublimaze 100 mcg/2 mL) 25 mcg Q10M PRN IV Moderate Pain (Pain Scale 4-6) 04/26/18 08:45 04/26/18 17:00 Heparin Sodium (Porcine) (Heparin 5000 units/ml) 5,000 units EVERY 12 HOURS SUBQ 04/22/18 21:00 05/22/18 20:59 04/25/18 20:51 Hydromorphone HCl (Dilaudid) 0.5 mg Q15M PRN IVP Severe Pain (Pain Scale 7-10) 04/26/18 08:45 04/26/18 18:00 Hydroxyzine HCl (Vistaril) 10 mg Q6H PRN ORAL Itching 04/25/18 16:30 05/25/18 16:29 04/25/18 17:03 Insulin Aspart (NovoLOG) BEFORE MEALS AND HS SUBQ 04/22/18 22:00 05/22/18 21:59 04/26/18 05:52 Labetalol HCl (Normodyne) 5 mg Q10M PRN IV SBP>160 / DBP>90 04/26/18 08:45 04/26/18 18:00 Lorazepam (Ativan 2mg/ml 1ml) 1 mg Q15M PRN IV For Anxiety 04/26/18 08:45 04/26/18 18:00 Losartan Potassium (Cozaar) 25 mg DAILY ORAL 04/23/18 09:00 05/23/18 08:59 04/26/18 10:52 Metoclopramide HCl (Reglan) 10 mg Q1H PRN IVP Nausea & Vomiting 04/26/18 08:45 04/26/18 18:00 Midazolam HCl (Versed 2mg/2ml vial) 1 mg Q15M PRN IVP For Anxiety 04/26/18 08:45 04/26/18 18:00 Morphine Sulfate (Morphine Sulfate) 1 mg Q4H PRN IVP Severe Pain (Pain Scale 7-10) 04/22/18 20:45 04/29/18 20:44 Ondansetron HCl (Zofran) 4 mg Q1H PRN IVP Nausea & Vomiting 04/26/18 08:45 04/26/18 18:00 Ondansetron HCl (Zofran) 4 mg Q4H PRN IVP Nausea & Vomiting 04/22/18 20:45 05/22/18 20:44 Oxycodone/ Acetaminophen (Percocet 5-325) 1 tab Q1H PRN ORAL Severe Pain (Pain Scale 7-10) 04/26/18 08:45 04/26/18 18:00 Assessment/Plan Assessment/Plan Encephalopathy Urmila Metcalf MD Apr 26, 2018 11:33
--- NOTE | 2018-04-26 12:12 | General Progress Note ---
Assessment/Plan Assessment/Plan S: I am ok O: comfortable, tolerating po . BM + PHYSICAL EXAMINATION: HEAD AND NECK: Atraumatic and normocephalic. CHEST: Clear to auscultation. No wheezing. No crackles. HEART: S1 and S2. Regular rate and rhythm. Negative for S4. Negative for S3. ABDOMEN: Soft. No organomegaly. MUSCULOSKELETAL: No gross focal motor deficit. NEUROLOGIC: The patient is awake, alert, and oriented x3. Meds: reviewed and reconciled in the chart ASSESSMENT AND PLAN: 1. Acute gastroenteritis - etiology working in progress. 2. Diabetes type 2. 3. Hypertension. 4. Anemia. 5. GI and DVT prophylaxis. 6. Hypokalemia Plan: if tolerating PO and clear by GI, ok to dc today Subjective Allergies: Coded Allergies: No Known Allergies (Unverified , 04/22/18) Objective Last 24 Hour Vital Signs Date Time Temp Pulse Resp B/P (MAP) Pulse Ox O2 Delivery O2 Flow Rate FiO2 04/26/18 10:52 147/67 04/26/18 10:00 97.8 54 20 147/67 95 Room Air 97.8 04/26/18 09:45 58 20 140/64 95 Room Air 04/26/18 09:35 56 20 138/64 95 Room Air 04/26/18 09:25 51 18 133/61 95 Room Air 04/26/18 09:13 56 16 137/68 100 Room Air 04/26/18 09:08 60 16 149/62 100 Room Air 04/26/18 09:07 207.7 67 16 100 04/26/18 09:06 207.7 60 16 100 04/26/18 09:03 97.6 62 16 155/64 100 Simple Mask 5 97.6 04/26/18 09:00 Room Air 04/26/18 08:00 97.2 58 20 161/62 (95) 99 97.2 04/26/18 04:00 99.3 63 20 140/64 (89) 98 99.3 04/26/18 00:00 99.4 60 18 150/65 (93) 95 99.4 04/25/18 22:50 Room Air 04/25/18 21:45 67 18 Room Air 21 04/25/18 20:00 99.4 63 20 158/61 (93) 98 99.4 04/25/18 16:00 98.2 62 22 138/61 (86) 97 98.2 Intake and Output 04/25/18 04/26/18 19:00 07:00 Intake Total 1160 ml 820 ml Balance 1160 ml 820 ml Intake Oral 960 ml IV Total 200 ml 820 ml # Voids 2 4 # Bowel Movements 1 Height (Feet): 5 Height (Inches): 5.00 Weight (Pounds): 144 Airam Presley MD Apr 26, 2018 12:12
--- NOTE | 2018-04-26 16:15 | Procedure Note ---
DATE OF PROCEDURE: 04/26/2018 SURGEON: Jeet Harrison M.D. ANESTHESIOLOGIST: Dr. Vazquez. REFERRING PHYSICIAN: Airam Presley M.D. PROCEDURE: Upper endoscopy with biopsy. ANESTHESIA: Per Dr. Vazquez. INSTRUMENT: Olympus adult flexible upper endoscope. INDICATION: Abdominal pain, anemia. The procedure, risks, benefits, and possible consequences, including hemorrhage, aspiration, perforation and infection, and alternative treatments, were explained to the patient/legal guardian by Dr. Jeet Harrison and the patient/legal guardian understood and accepted these risks. DESCRIPTION OF PROCEDURE: After informed consent was obtained and the patient was adequately sedated, Olympus upper endoscope was advanced from the mouth into the second portion of duodenum and retroflexion was performed in the stomach. The patient had evidence of diffuse gastritis. Random biopsy of antrum and body was obtained to rule out H. pylori infection. Otherwise, the rest of the upper endoscopic examination was grossly within normal limits. The patient tolerated procedure very well without any complication. SUMMARY OF FINDINGS: Gastritis, otherwise normal upper endoscopic examination. RECOMMENDATIONS: 1. Follow up biopsy results and treat accordingly. 2. The patient will need outpatient followup for colonoscopy. I want to thank Dr. Presley for this kind referral. Jeet Harrison M.D. DR: Carley JOB#: [id number] CC: Airam Presley M.D.; Fax#: [phone]
[2018-04-26] MEDS ORDERED: Tubing IV Secondary IV ONE (16:20)
[2018-04-26] MEDS ORDERED: NS 275ml ONE (16:20)
--- NOTE | 2018-04-28 07:48 | Discharge Summary ---
Discharge Summary Discharge Summary _ DATE OF ADMISSION: 04/22/2018 DATE OF DISCHARGE: 04/26/2018 REASON FOR ADMISSION: 67 years old female with past medical history of hypertension, diabetes, asthma , presented with 5 days of abdominal pain ,vomiting and diarrhea. Initially vomited with coffee-ground material. She was evaluated at [facility] few days before but was told that nothing was wrong. Pain was located in the left lower quadrant ,intermittent, cramping, nonradiating. She also reported watery and copious diarrhea. She reported dizziness and weakness while standing. Patient was able to keep down liquids, but felt weak and dehydrated . and came for evaluation Upon evaluation vital signs were stable. Denied melena , no bright red blood per rectum. CT of the abdomen and pelvis revealed no appendicitis, no small bowel obstruction on diverticulitis. Mild diffuse colonic thickening which may be underdistention versus colitis. No hydronephrosis Cholelithiasis noted. 1.6 cm hypodensity in the right kidney probably cystic but likely complex. Troponin negative. EKG revealed no acute ischemic changes Chest x-ray revealed no acute cardiopulmonary pathology. Laboratory workup revealed no leukocytosis. Hemoglobin 11.3, hematocrit 34.3. Urinalysis revealed +2 leukocyte esterase but no pyuria and only occasional bacteria In emergency department patient was started on the IV hydration, medicated for pain . Zofran and Pepcid were administered and Patient admitted for further management with diagnosis of possible colitis, abdominal pain, dehydration, diabetes, hypertension, CONSULTANTS: ID specialist Dr. Wang GI specialist Dr. Harrison psychiatrist Dr. Metcalf [facility]SE: Patient admitted to medical surgical floor. Patient initially kept nothing by mouth. IV hydration started. Patient started on empiric antibiotics. ID consult was requested. To rule out infectious etiology, stool culture and stool for C. difficile were ordered, both were negative. No fever no leukocytosis . Supportive care provided. Patient was on PPI. GI specialist closely followed. Patient subsequently undergone upper endoscopy which revealed gastritis, no other findings Diet was slowly reintroduced. Antiemetics provided as needed. Patient was able to tolerate diet. Pain management was addressed , and pain was controlled. Renal parameters electrolytes were closely monitored. Electrolytes, i.e. potassium was replaced ,and remained stable. Nephrotoxins were avoided. Blood pressure was managed with angiotensin receptor rocío and remained stable. Blood sugar was managed with sliding scale of insulin. Hemoglobin A1c 7.6. Patient needs further optimization of anti-glycemic regimen to bring hemoglobin A1c under goal. Hemoglobin and hematocrit were closely monitored , remained on the baseline. DVT and GI prophylaxis provided Patient clinically improved . Antibiotic stopped. Patient was stable for discharge home. FINAL DIAGNOSES: Acute gastroenteritis Possible colitis Dehydration Gastritis Diabetes mellitus Hypertension Mild anemia Hypokalemia DISCHARGE MEDICATIONS: See Medication Reconciliation list. DISCHARGE INSTRUCTIONS: Patient was discharged home follow-up with her primary care provider in one week I have been assigned to dictate discharge summary for this account. I was not involved in the patient's management. Bette Smith NP Apr 28, 2018 07:48
== END 2018-04-26 16:21 | disposition home or self-care (01) | DRG 249 ==
LOC: EMR 16:56 → 4E 17:28 → EDBEDREQ 17:36
PROC: 0DB78ZX Excision of Stomach, Pylorus, Via Natural or Artificial Opening Endoscopic, Diagnostic (ICD-10-PCS; 2018-04-26)
PROC: 0DB68ZX Excision of Stomach, Via Natural or Artificial Opening Endoscopic, Diagnostic (ICD-10-PCS; principal; 2018-04-26 08:43)
DX: K52.9 Noninfective gastroenteritis and colitis, unspecified (principal); J44.9 Chronic obstructive pulmonary disease, unspecified; E86.0 Dehydration; D64.9 Anemia, unspecified; E11.9 Type 2 diabetes mellitus without complications; E87.6 Hypokalemia; I10 Essential (primary) hypertension; R10.9 Unspecified abdominal pain; N39.0 Urinary tract infection, site not specified; K29.70 Gastritis, unspecified, without bleeding; Z87.891 Personal history of nicotine dependence
CPT/HCPCS: 36415; 71045; 74177; 80048; 80053; 81003; 82962; 83036; 83690; 84484; 85025; 85610; 85730; 86850; 86900; 86901; 87045; 87324; 93005; 94003; 94150; 94664; 99285; J1815; J2250; J2405; J8499

== ENCOUNTER 2020-06-10 09:41 | Emergency (ER) | payer MEDICAID ==
[~2020-06-10] VITALS: Ht 152.4 cm; Wt 63.5 kg
[~2020-06-10 09:41] MED LIST: ASPIRIN81 MG ORAL; GLIPIZIDE XL10 MG ORAL; LOSARTAN POTASS25 MG ORAL; METFORMIN HCL1000 M1 ORAL; PROAIR HFA8.5 GM INH
[2020-06-10] MEDS ORDERED: Albuterol 90mcg Inhaler 8gm INH PRN (10:00)
--- NOTE | 2020-06-10 10:40 | NUR ---
ED Nurse Note: Pt walked in from home c/o SOB/wheezing since this morning. Pt has hx of asthma. Pt has O2 saturation of 98% on room air. All other vitals stable as documented. A+Ox4, speaking in full sentences.
[2020-06-10 10:45] VITALS: BP 152/84
--- NOTE | 2020-06-10 10:53 | NUR ---
ED Nurse Note: covid swab collected and sent to lab
[2020-06-10 10:57] LABS: BASOPHILS % (AUTO) 1.6 % (0.0-2.0); EOSINOPHILS % (AUTO) 3.9 % (0.0-3.0); HEMATOCRIT 40.4 % (37.0-47.0); HEMOGLOBIN 13.6 G/DL (12.0-16.0); LYMPHOCYTES % (AUTO) 38.2 % (20.0-45.0); MEAN CORPUSCULAR VOLUME 95 FL (80-99); MONOCYTES % (AUTO) 4.9 % (1.0-10.0); NEUTROPHILS % (AUTO) 51.4 % (45.0-75.0); PLATELET COUNT 316 K/UL (150-450); RED BLOOD COUNT 4.26 M/UL (4.20-5.40); RED CELL DISTRIBUTION WIDTH 12.5 % (11.6-14.8); WHITE BLOOD COUNT 7.4 K/UL (4.8-10.8)
[2020-06-10 11:07] LABS: ANION GAP 11 mmol/L (5-15); BLOOD UREA NITROGEN 8 mg/dL (7-18); CALCIUM 10.6 MG/DL (8.5-10.1); CARBON DIOXIDE 25 MMOL/L (21-32); CHLORIDE 106 MMOL/L (98-107); CREATININE 0.6 MG/DL (0.55-1.30); POTASSIUM 3.9 MMOL/L (3.5-5.1); SODIUM 142 MMOL/L (136-145)
[2020-06-10 11:23] LABS: ALANINE AMINOTRANSFERASE 22 U/L (12-78); ALKALINE PHOSPHATASE 112 U/L (46-116); ASPARTATE AMINO TRANSFERASE 21 U/L (15-37); BILIRUBIN,TOTAL 1.1 MG/DL (0.2-1.0)
[2020-06-10 11:24] LABS: BILIRUBIN,DIRECT 0.2 MG/DL (0.0-0.3)
[2020-06-10] MEDS: Albuterol/Ipratropium 3ml neb HHN SCH ×5 (11:40→12:45)
--- NOTE | 2020-06-10 11:40 | NUR ---
Note undone in EDM - 06/10/20 at 1234 by [facility] ED Nurse Note: Pt walked in from home c/o SOB/wheezing since this morning. Pt has hx of asthma. Pt has O2 saturation of 98% on room air. All other vitals stable as documented. A+Ox4, speaking in full sentences.
--- NOTE | 2020-06-10 11:56 | Diagnostic Imaging Report ---
EXAM: XR Chest, 1 View CLINICAL HISTORY: SOB TECHNIQUE: Frontal view of the chest. COMPARISON: None available FINDINGS: Hardware: None. Lungs/pleura: Hyperinflation of the lungs is suggestive of COPD. Left basilar opacity. Elevation of the right hemidiaphragm. No focal consolidation. No pleural effusion or pneumothorax. Heart/mediastinum: Borderline size of the cardiac silhouette. Atherosclerotic calcifications of the aorta. Soft tissues: Unremarkable. Bones: No acute fracture. Upper abdomen: Normal. IMPRESSION: 1. Hyperinflation of the lungs is suggestive of COPD. 2. Left basilar opacity may represent atelectasis. Infectious/inflammatory process is not excluded.
[2020-06-10] MEDS ORDERED: Albuterol/Ipratropium 3ml neb HHN ONE (13:15)
--- NOTE | 2020-06-10 13:21 | Emergency Room Report ---
History of Present Illness General Chief Complaint: Asthma Source: Patient Present Illness HPI 69-year-old female history of asthma and COPD here with shortness of breath. Patient says that over the past 2 days she has been increasingly short of breath and has been using her albuterol inhaler 4 times a day. Says that today she says she awoke and felt the shortness of breath was slightly worse. Denies fevers, chills, chest pain, palpitations, back pain, abdominal pain, cough, nausea, vomiting, diarrhea, dysuria. Allergies: Coded Allergies: No Known Allergies (Unverified , 04/22/18) COVID-19 Screening Contact w/high risk pt: No Experienced COVID-19 symptoms?: No COVID-19 Testing performed [place] [employer]OR: No Nursing Documentation-[facility] Past Medical History: No History, Except For Hx Cardiac Problems: Yes Hx Hypertension: Yes Hx Asthma: Yes Hx Diabetes: Yes Hx Cancer: No Hx Gastrointestinal Problems: No Hx Neurological Problems: No Review of Systems All Other Systems: negative except mentioned in HPI Physical Exam Vital Signs Date Time Temp Pulse Resp B/P (MAP) Pulse Ox O2 Delivery O2 Flow Rate FiO2 06/10/20 09:49 96.8 83 24 169/89 (115) 98 06/10/20 10:45 Room Air 06/10/20 11:42 21 Sp02 EP Interpretation: reviewed, normal General Appearance: no apparent distress, alert, GCS 15, non-toxic Head: normocephalic, atraumatic Eyes: bilateral eye normal inspection, bilateral eye PERRL ENT: hearing grossly normal, normal pharynx, no angioedema, normal voice Neck: full range of motion, supple/symm/no masses Respiratory: chest non-tender, speaking full sentences, other - Very mild accessory muscle usage diffusely. Expiratory wheezes and rales in all lung alfaro bilaterally Cardiovascular #1: regular rate, rhythm, no edema Cardiovascular #2: 2+ carotid (R), 2+ carotid (L), 2+ radial (R), 2+ radial (L) , 2+ dorsalis pedis (R), 2+ dorsalis pedis (L) Gastrointestinal: normal bowel sounds, non tender, soft, non-distended, no guarding, no rebound Rectal: deferred Genitourinary: normal inspection, no CVA tenderness Musculoskeletal: back normal, normal range of motion, calf tenderness, gait/ station normal, non-tender Neurologic: alert, motor strength/tone normal, oriented x3, sensory intact, responsive, speech normal Psychiatric: judgement/insight normal, memory normal, mood/affect normal, no suicidal/homicidal ideation Reflexes: 3+ bicep (R), 3+ bicep (L), 3+ tricep (R), 3+ tricep (L), 3+ knee (R) , 3+ knee (L) Lymphatic: no adenopathy Medical Decision Making Diagnostic Impression: Primary Impression: Asthma attack ER Course Laboratory Tests Test 06/10/20 10:35 White Blood Count 7.4 K/UL (4.8-10.8) Red Blood Count 4.26 M/UL (4.20-5.40) Hemoglobin 13.6 G/DL (12.0-16.0) Hematocrit 40.4 % (37.0-47.0) Mean Corpuscular Volume 95 FL (80-99) Mean Corpuscular Hemoglobin 32.0 PG (27.0-31.0) H Mean Corpuscular Hemoglobin Concent 33.7 G/DL (32.0-36.0) Red Cell Distribution Width 12.5 % (11.6-14.8) Platelet Count 316 K/UL (150-450) Mean Platelet Volume 5.4 FL (6.5-10.1) L Neutrophils (%) (Auto) 51.4 % (45.0-75.0) Lymphocytes (%) (Auto) 38.2 % (20.0-45.0) Monocytes (%) (Auto) 4.9 % (1.0-10.0) Eosinophils (%) (Auto) 3.9 % (0.0-3.0) H Basophils (%) (Auto) 1.6 % (0.0-2.0) Sodium Level 142 MMOL/L (136-145) Potassium Level 3.9 MMOL/L (3.5-5.1) Chloride Level 106 MMOL/L (98-107) Carbon Dioxide Level 25 MMOL/L (21-32) Anion Gap 11 mmol/L (5-15) Blood Urea Nitrogen 8 mg/dL (7-18) Creatinine 0.6 MG/DL (0.55-1.30) Estimated Glomerular Filtration Rate > 60 mL/min (>60) Glucose Level 156 MG/DL (74-106) H Calcium Level 10.6 MG/DL (8.5-10.1) H Magnesium Level 1.7 MG/DL (1.8-2.4) L Total Bilirubin 1.1 MG/DL (0.2-1.0) H Direct Bilirubin 0.2 MG/DL (0.0-0.3) Aspartate Amino Transferase (AST) 21 U/L (15-37) Alanine Aminotransferase (ALT) 22 U/L (12-78) Alkaline Phosphatase 112 U/L (46-116) Troponin I 0.000 ng/mL (0.000-0.056) Total Protein 8.1 G/DL (6.4-8.2) Albumin 4.0 G/DL (3.4-5.0) Globulin 4.1 g/dL Albumin/Globulin Ratio 1.0 (1.0-2.7) Microbiology Date/Time Source Procedure Growth Status 06/10/20 10:50 Nasopharynx SARS-CoV-2 RdRp Gene Assay - Final Complete EXAM: XR Chest, 1 View CLINICAL HISTORY: SOB TECHNIQUE: Frontal view of the chest. COMPARISON: None available FINDINGS: Hardware: None. Lungs/pleura: Hyperinflation of the lungs is suggestive of COPD. Left basilar opacity. Elevation of the right hemidiaphragm. No focal consolidation. No pleural effusion or pneumothorax. Heart/mediastinum: Borderline size of the cardiac silhouette. Atherosclerotic calcifications of the aorta. Soft tissues: Unremarkable. Bones: No acute fracture. Upper abdomen: Normal. IMPRESSION: 1. Hyperinflation of the lungs is suggestive of COPD. 2. Left basilar opacity may represent atelectasis. Infectious/inflammatory process is not excluded. Ddx: Asthma, copd, pna, ptx, pe, chf, acs, anemia, endocrine, renal, covid, at risk for sepsis 69-year-old female history of asthma and COPD here with shortness of breath. Patient was hemodynamically stable in the emergency department and speaking full sentences on arrival. CBC and CMP were unremarkable. Chest x-ray showed hyperinflation suggestive of COPD and a possible left basilar opacity with atelectasis versus infectious or inflammatory process. She had no cough and denies any new sputum production. Patient no fever no leukocytosis, no suspicion for sepsis. Cover test negative. Patient received 2 DuoNeb treatments with complete resolution of her shortness of breath. She received prednisone 60 mg p.o. in the emergency department and 2 mg of magnesium IV. She said that she felt completely better and was adamantly refusing admission to the hospital. She was given prescription for prednisone to take for 4 more days as well as azithromycin. She says that she has full albuterol MDI inhalers to use at home. Will follow-up with primary care. Discharged in stable condition. Last Vital Signs Date Time Temp Pulse Resp B/P (MAP) Pulse Ox O2 Delivery O2 Flow Rate FiO2 06/10/20 12:01 78 20 100 Room Air 21 76 20 100 06/10/20 10:45 97.3 152/84 Scripts Azithromycin* (ZITHROMAX*) 250 Mg Tablet 250 MG ORAL DAILY, #6 TAB 0 Refills Take two tables once daily for 1 day, then one tablet once daily for 4 days. Prov: Brodie Cordova M.D. 06/10/20 Prednisone* (PREDNISONE*) 20 Mg Tablet 40 MG ORAL DAILY for 4 Days, #8 TAB Prov: Brodie Cordova M.D. 06/10/20 Referrals: NOT CHOSEN WILFRIDO/,REFERRING (PCP) Brodie Cordova M.D. Jun 10, 2020 13:20
[2020-06-10] MEDS ORDERED: PREDNISONE20 MG ORAL (13:30)
[2020-06-10] MEDS ORDERED: ZITHROMAX250 MG ORAL (13:30)
[2020-06-10 13:50] VITALS: BP 148/81
--- NOTE | 2020-06-10 13:50 | NUR ---
ER DISCHARGE NOTE: Patient is cleared to be discharged per ERMD, pt is aox4, on room air, with stable vital signs. pt was given dc and prescription instructions, pt was able to verbalize understanding, pt id band and iv site removed without complications. pt is able to ambulate with steady gait. pt took all belongings.
== END 2020-06-10 13:50 | disposition home or self-care (01) ==
LOC: EMR 10:17
DX: J45.901 Unspecified asthma with (acute) exacerbation (principal); I10 Essential (primary) hypertension; E11.9 Type 2 diabetes mellitus without complications; J44.9 Chronic obstructive pulmonary disease, unspecified
CPT/HCPCS: 36415; 71045; 80053; 82248; 83735; 84484; 85025; 93005; 94640; 96365; 96366; J7512; U0002; Z7502; 99284; J7620

== ENCOUNTER 2020-06-13 12:34 | Emergency (ER) | payer MEDICAID ==
[~2020-06-13] VITALS: Ht 152.4 cm; Wt 63.5 kg
[~2020-06-13 12:34] MED LIST changes: +PREDNISONE20 MG ORAL; +ZITHROMAX250 MG ORAL
[2020-06-13 12:45] VITALS: BP 153/60
--- NOTE | 2020-06-13 13:27 | Emergency Room Report ---
History of Present Illness General Chief Complaint: Abnormal Labs Present Illness HPI Patient is a 69-year-old female who presented after increased generalized weakness and high blood sugar. Patient had recent been given a prednisone prescription for asthma. Had negative coronavirus testing earlier in this week. Patient had recently been prescribed prednisone and had a history of type 2 diabetes. She normally takes metformin. Sugar had been more elevated and so her gave her 10 units of insulin subcu. (Carlos Matthews MD) Allergies: Coded Allergies: No Known Allergies (Unverified , 04/22/18) COVID-19 Screening Contact w/high risk pt: No Experienced COVID-19 symptoms?: No COVID-19 Testing performed STOCK SELECTOR: No (Carlos Matthews MD) Patient History Past Medical History: see triage record Now: No Reviewed Nursing Documentation: PMH: Agreed; PSxH: Agreed (Carlos Matthews MD) Nursing Documentation-PMH Hx Cardiac Problems: Yes - arthritis Hx Hypertension: Yes Hx Asthma: Yes Hx Diabetes: Yes Hx Cancer: No Hx Gastrointestinal Problems: No Hx Neurological Problems: No (Carlos Matthews MD) Review of Systems All Other Systems: negative except mentioned in HPI (Carlos Matthews MD) Physical Exam Vital Signs Date Time Temp Pulse Resp B/P (MAP) Pulse Ox O2 Delivery O2 Flow Rate FiO2 06/13/20 12:36 98.4 62 19 153/60 (91) 97 Room Air Sp02 EP Interpretation: reviewed, normal General Appearance: normal inspection, well appearing, no apparent distress, alert, GCS 15 Head: atraumatic ENT: normal ENT inspection, hearing grossly normal, normal voice Neck: normal inspection, full range of motion, supple, no bony tend Respiratory: no retraction, wheezing Cardiovascular #1: regular rate, rhythm, no edema Gastrointestinal: normal inspection, normal bowel sounds, non tender, soft, no guarding, no hernia Genitourinary: no CVA tenderness Musculoskeletal: normal inspection, back normal, normal range of motion Neurologic: alert, motor strength/tone normal, 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 Differential diagnosis include was not limited to hyperkalemia, medication reaction, myocardial infarction, COPD among others. Because of complexity of patient's case laboratory tests and imaging studies were ordered.Patient is a former smoker and states she quit smoking approximately years ago. Patient's was given a breathing treatment. Patient's blood sugar was noted to be somewhat elevated and patient had recent use of insulin. She was given breathing treatment. Patient had recent negative coronavirus testing. Chest x-ray results are currently pending. Patient was endorsed to Dr. Vasquez pending final disposition. Labs Test 06/13/20 13:09 POC Whole Blood Glucose 187 MG/DL (74-106) (Carlos Matthews MD) ER Course This patient was turned over to me from Dr. Matthews. This patient had presented for concern that her blood sugar was elevated in the setting of her diabetes and recently being on prednisone for a COPD/asthma exacerbation. The patient had underwent COVID-19 rapid testing 3 days ago and again today and this was negative. Patient has a history of asthma/COPD and has wheezing on physical exam. The patient was given albuterol and Atrovent nebulizer treatments. The patient had significant improvement in subjective shortness of breath. The patient's lung exam improved significantly. I will also treat the patient with a course of antibiotics as this has been shown to improve the course of an asthma exacerbation. The patient was offered admission to the hospital for pulmonary hygiene for her COPD given her age and that she had presented to the emergency department twice in the past 3 days. However, the patient declined at this time. The patient states that she feels better and that she was primarily concerned about her blood sugar. She only has 1 more day of the oral prednisone. Overall, the patient is without respiratory distress and is well- appearing and nontoxic. The patient's oxygen saturation is 98%. Troponin is negative. The patient desires to go home so I feel that that is appropriate. Chest a x-ray is unremarkable. The patient was given close return precautions and followup instructions. This patient was evaluated in the context of the global COVID-19 pandemic, which necessitated consideration that the patient might be at risk for infection with the [id number] virus that causes COVID-19. Institutional protocols and algorithms that pertain to the evaluation of patients at risk for COVID-19 and the state of rapid change based on information released by multiple regulatory bodies including the CDC and federal and state organizations. These policies and algorithms were followed during the patient' s care in the ED. Laboratory Tests Test 06/13/20 13:09 06/13/20 13:40 POC Whole Blood Glucose 187 MG/DL (74-106) H White Blood Count 11.1 K/UL (4.8-10.8) H Red Blood Count 4.03 M/UL (4.20-5.40) L Hemoglobin 13.0 G/DL (12.0-16.0) Hematocrit 38.2 % (37.0-47.0) Mean Corpuscular Volume 95 FL (80-99) Mean Corpuscular Hemoglobin 32.2 PG (27.0-31.0) H Mean Corpuscular Hemoglobin Concent 33.9 G/DL (32.0-36.0) Red Cell Distribution Width 12.4 % (11.6-14.8) Platelet Count 319 K/UL (150-450) Mean Platelet Volume 5.4 FL (6.5-10.1) L Neutrophils (%) (Auto) 63.0 % (45.0-75.0) Lymphocytes (%) (Auto) 29.6 % (20.0-45.0) Monocytes (%) (Auto) 6.3 % (1.0-10.0) Eosinophils (%) (Auto) 0.1 % (0.0-3.0) Basophils (%) (Auto) 1.1 % (0.0-2.0) D-Dimer 0.28 mg/L FEU (0.00-0.49) Sodium Level 138 MMOL/L (136-145) Potassium Level 4.2 MMOL/L (3.5-5.1) Chloride Level 102 MMOL/L (98-107) Carbon Dioxide Level 27 MMOL/L (21-32) Anion Gap 9 mmol/L (5-15) Blood Urea Nitrogen 20 mg/dL (7-18) H Creatinine 0.8 MG/DL (0.55-1.30) Estimated Glomerular Filtration Rate > 60 mL/min (>60) Glucose Level 139 MG/DL (74-106) H Calcium Level 10.4 MG/DL (8.5-10.1) H Total Bilirubin 0.7 MG/DL (0.2-1.0) Aspartate Amino Transferase (AST) 18 U/L (15-37) Alanine Aminotransferase (ALT) 24 U/L (12-78) Alkaline Phosphatase 98 U/L (46-116) Troponin I 0.000 ng/mL (0.000-0.056) C-Reactive Protein, Quantitative 1.3 mg/dL (0.00-0.90) H Total Protein 7.5 G/DL (6.4-8.2) Albumin 3.9 G/DL (3.4-5.0) Globulin 3.6 g/dL Albumin/Globulin Ratio 1.1 (1.0-2.7) Microbiology Date/Time Source Procedure Growth Status 06/13/20 14:32 Nasopharynx SARS-CoV-2 RdRp Gene Assay - Final Complete Laboratory Tests Test 06/13/20 13:09 06/13/20 13:40 POC Whole Blood Glucose 187 MG/DL (74-106) H White Blood Count 11.1 K/UL (4.8-10.8) H Red Blood Count 4.03 M/UL (4.20-5.40) L Hemoglobin 13.0 G/DL (12.0-16.0) Hematocrit 38.2 % (37.0-47.0) Mean Corpuscular Volume 95 FL (80-99) Mean Corpuscular Hemoglobin 32.2 PG (27.0-31.0) H Mean Corpuscular Hemoglobin Concent 33.9 G/DL (32.0-36.0) Red Cell Distribution Width 12.4 % (11.6-14.8) Platelet Count 319 K/UL (150-450) Mean Platelet Volume 5.4 FL (6.5-10.1) L Neutrophils (%) (Auto) 63.0 % (45.0-75.0) Lymphocytes (%) (Auto) 29.6 % (20.0-45.0) Monocytes (%) (Auto) 6.3 % (1.0-10.0) Eosinophils (%) (Auto) 0.1 % (0.0-3.0) Basophils (%) (Auto) 1.1 % (0.0-2.0) D-Dimer 0.28 mg/L FEU (0.00-0.49) Sodium Level 138 MMOL/L (136-145) Potassium Level 4.2 MMOL/L (3.5-5.1) Chloride Level 102 MMOL/L (98-107) Carbon Dioxide Level 27 MMOL/L (21-32) Anion Gap 9 mmol/L (5-15) Blood Urea Nitrogen 20 mg/dL (7-18) H Creatinine 0.8 MG/DL (0.55-1.30) Estimated Glomerular Filtration Rate > 60 mL/min (>60) Glucose Level 139 MG/DL (74-106) H Calcium Level 10.4 MG/DL (8.5-10.1) H Total Bilirubin 0.7 MG/DL (0.2-1.0) Aspartate Amino Transferase (AST) 18 U/L (15-37) Alanine Aminotransferase (ALT) 24 U/L (12-78) Alkaline Phosphatase 98 U/L (46-116) C-Reactive Protein, Quantitative 1.3 mg/dL (0.00-0.90) H Total Protein 7.5 G/DL (6.4-8.2) Albumin 3.9 G/DL (3.4-5.0) Globulin 3.6 g/dL Albumin/Globulin Ratio 1.1 (1.0-2.7) Microbiology Date/Time Source Procedure Growth Status 06/13/20 14:32 Nasopharynx SARS-CoV-2 RdRp Gene Assay - Final Complete ([facility]) EKG Diagnostic Results Rate: bradycardiac Rhythm: other - S.bradycardia w/ NSST findings. T-waves in III, V1-V3. ST Segments: no acute changes ([facility]) Rhythm Strip Diag. Results EP Interpretation: yes Rate: 50's Rhythm: no PVC's, other - S.nicolas w/ PAC's ([facility]) Chest X-Ray Diagnostic Results Chest X-Ray Diagnostic Results : Chest X-Ray Ordered: Yes # of Views/Limited/Complete: 1 View Indication: Shortness of Breath EP Interpretation: Yes Interpretation: no consolidation, no effusion, no pneumothorax, no acute cardiopulmonary disease Impression: No acute disease Electronically Signed by: Brook Gonzalez DO ([facility]) Last Vital Signs Date Time Temp Pulse Resp B/P (MAP) Pulse Ox O2 Delivery O2 Flow Rate FiO2 06/13/20 12:36 98.4 62 19 153/60 (91) 97 Room Air Status: improved (Carlos Matthews MD) Status: improved (Brook Gonzalez DO) Disposition: HOME, SELF-CARE Condition: Improved Scripts Azithromycin* (ZITHROMAX*) 250 Mg Tablet 250 MG ORAL see instructions, #6 TAB 0 Refills Take two tables once daily for 1 day, then one tablet once daily for 4 days. Prov: Brook Gonzalez DO 06/13/20 Referrals: NON PHYSICIAN (PCP) Carlos Matthews MD Jun 13, 2020 13:27 Brook Gonzalez DO Jun 13, 2020 16:04
[2020-06-13] MEDS ORDERED: Albuterol/Ipratropium 3ml neb HHN ONE (13:30)
[2020-06-13 13:58] LABS: BASOPHILS % (AUTO) 1.1 % (0.0-2.0); EOSINOPHILS % (AUTO) 0.1 % (0.0-3.0); HEMATOCRIT 38.2 % (37.0-47.0); LYMPHOCYTES % (AUTO) 29.6 % (20.0-45.0); MEAN CORPUSCULAR VOLUME 95 FL (80-99); MONOCYTES % (AUTO) 6.3 % (1.0-10.0); PLATELET COUNT 319 K/UL (150-450); RED BLOOD COUNT 4.03 M/UL (4.20-5.40); RED CELL DISTRIBUTION WIDTH 12.4 % (11.6-14.8); WHITE BLOOD COUNT 11.1 K/UL (4.8-10.8)
[2020-06-13 14:04] LABS: ANION GAP 9 mmol/L (5-15); BLOOD UREA NITROGEN 20 mg/dL (7-18); CALCIUM 10.4 MG/DL (8.5-10.1); CARBON DIOXIDE 27 MMOL/L (21-32); CHLORIDE 102 MMOL/L (98-107); CREATININE 0.8 MG/DL (0.55-1.30); POTASSIUM 4.2 MMOL/L (3.5-5.1); SODIUM 138 MMOL/L (136-145)
[2020-06-13 14:09] LABS: ALANINE AMINOTRANSFERASE 24 U/L (12-78); ALBUMIN 3.9 G/DL (3.4-5.0); ALBUMIN/GLOBULIN RATIO 1.1 (1.0-2.7); ALKALINE PHOSPHATASE 98 U/L (46-116); ASPARTATE AMINO TRANSFERASE 18 U/L (15-37); BILIRUBIN,TOTAL 0.7 MG/DL (0.2-1.0)
[2020-06-13] MEDS ORDERED: ZITHROMAX250 MG ORAL (16:48)
[2020-06-13 17:07] VITALS: BP 148/67
--- NOTE | 2020-06-13 17:34 | Diagnostic Imaging Report ---
Indication: Shortness of Technique: One view of the chest Comparison: 06/10/2020 Findings: The heart is borderline enlarged. Lungs an pleural spaces are clear. No significant change Impression: No acute process
== END 2020-06-13 17:07 | disposition home or self-care (01) ==
LOC: EMR 13:25 → CANBEDREQ 15:38 → EMR 17:07
DX: J44.1 Chronic obstructive pulmonary disease with (acute) exacerbation (principal); E11.65 Type 2 diabetes mellitus with hyperglycemia; T50.905A Adverse effect of unspecified drugs, medicaments and biological substances, initial encounter; Y92.9 Unspecified place or not applicable; Z87.891 Personal history of nicotine dependence; R00.1 Bradycardia, unspecified; Z79.84 Long term (current) use of oral hypoglycemic drugs
CPT/HCPCS: 36415; 71045; 80053; 82962; 84484; 85025; 85379; 86140; 93005; 94640; U0002; Z7502; 99284; J7620